=== PATIENT | male | born 1960 | race Caucasian/White ===

== ENCOUNTER 2024-10-01 06:11 | Observation (INO) ==
[2024-10-01] MEDS: MoRPHine SULFATE 4 MG/ML 1 ML CARP\\VIAL IV STA (06:33)
[2024-10-01] MEDS: ONDANSETRON INJ 2 MG/ML 2 ML VIAL IV STA (06:33)
--- NOTE | 2024-10-01 06:48 | Emergency Department Note ---
Impression & Plan Chest pain, Elevated troponin I level, Chest wall hematoma ED Provider Note NAME: MORTEZA THOMAS AGE: 64 SEX: M : 1960 ARRIVES VIA: Walk-In INFORMANT: Patient, ED PROVIDER(S): Tom Dasilva DO CHIEF COMPLAINT: Coughing HPI: The patient is a 64-year-old male who presented to the emergency department for an evaluation of cough. The patient's had a productive cough over the course of the last several weeks. The patient went to his family doctor and was placed on an antibiotic. This did not significantly improve his symptoms. He denies having any vomiting. He has been coughing to the point where now he has upper abdominal pain. He denies having any back pain. He denies have any leg swelling or leg pain. He did recently returned from a trip to [place]. The patient does not have a history of venous thromboembolic disease. He denies having any trauma. ROS: See above HPI for pertinent positives & negatives. A total of 10 systems reviewed and were otherwise negative. PAST MEDICAL HISTORY: See Below PAST SURGICAL HISTORY: See Below FAMILY HISTORY: See Below SOCIAL HISTORY: See Below HOME MEDICATIONS: See Below ALLERGIES: See Below VITALS: See Below PHYSICAL EXAMINATION: GENERAL: Patient is awake alert in no acute distress patient is resting comfortably and showing no signs of anxiety EYES: The conjunctivae are clear. The pupils are round and reactive. EARS, NOSE, MOUTH AND THROAT: The nose is without any evidence of any deformity. Mucous membranes are moist. Tongue is midline. NECK: The neck is nontender and supple. RESPIRATORY: Normal respiratory effort is noted there is no evidence of wheezing rhonchi or rales CARDIOVASCULAR: Regular rate and rhythm noted there no murmurs rubs or gallops normal S1 normal S2. GASTROINTESTINAL: The abdomen was soft and mildly distended. There is right upper quadrant tenderness to palpation which was moderate. There is no guarding rigidity. MUSCULOSKELETAL/EXTREMITIES: There is no evidence of gross deformity full range of motion is noted in the hips and shoulders. SKIN: There is no obvious evidence of any rash. There are no petechiae, pallor or cyanosis noted. NEUROLOGIC: Patient is awake alert and oriented x3 MEDICAL DECISION MAKING: The patient is a 64-year-old male who presented to the emergency department for abdominal pain and chest pain. The patient described anterior chest pain that also right upper quadrant abdominal pain. He has been experiencing a cough over the course the last several weeks. The patient was treated with an antibiotic but no improvement was noted. The patient has palpable tenderness over the right upper quadrant. I discussed patient's laboratory and radiographic studies with him. He was found to have an elevated troponin but EKG did not show any acute ischemic changes. I discussed his condition with the on-call [facility] hospitalist. Initially there was consideration for heparinization but we were waiting for the CT of the chest to be returned to determine if there was a pulmonary embolism. Ultimately the patient was found to have a large chest wall hematoma. For this reason anticoagulation would be not ideal and the patient's second troponin was lower than his initial finding. Triage Nursing notes reviewed. Prior medical records reviewed Vital Signs: reviewed and remarkable for no significant abnormalities Differential diagnosis: Cardiac ischemia, aortic dissection, pulmonary embolism, pneumothorax, pneumonia, pericarditis, myocarditis, esophageal rupture, GERD, cholecystitis, pancreatitis, musculoskeletal, as well as other pathologies. ER treatment provided: See below Diagnostics interpreted by me: ECG: EKG was obtained in the emergency department. My interpretation is sinus bradycardia at 47 bpm. There is no ectopy. There is no acute ST segment abnormalities noted. Cardiac Monitoring: An order was placed for continuous cardiac monitoring. The monitor shows a rate of 52 bpm with sinus bradycardia. Laboratory studies: As stated above and show below. Imaging studies: See below. Radiographic imaging was reviewed by myself Consultation(s): I discussed this case with Dr. Blanco who is on-call for the [facility]ist group. Past Med/Surg History Problem List (Updated 10/01/24 @ 09:42 by Tom Dasilva DO) Chest wall hematoma (Acute) Elevated troponin I level (Acute) Chest pain (Acute) Erectile dysfunction HTN (hypertension) Rosacea Right leg pain Class 2 obesity due to excess calories with body mass index (BMI) of 38.0 to 38.9 in adult Family History Other Ovarian cancer Denies family history of Prostate cancer Breast cancer Colorectal cancer Social History Smoking Status: Never smoker Tobacco Type: Smokeless Tobacco (Dip or Chew) Second Hand Exposure: No; Do You Dip or Chew Tobacco: Yes; Hx Alcohol Use: No Hx Substance Use: No Preferred Language: Slovak Communication Ability: Effective Hearing Ability: Normal [employer] Super[employer] Required: No Beliefs That Will Affect Care: None marital status: Current Living Situation: Spouse current occupational status: employed Other Information That Helps Us Care for You: No Feels Safe at Home: Yes Safety Concerns: Feels Safe At This Time Childhood Exposure to Second-Hand Smoke: Yes Diet: regular caffeine: Yes Physical Activity Frequency: Daily Physical Activity Frequency Comment: Active lifestyle Assistive Devices: None Allergies Allergies Allergy/AdvReac Type Severity Reaction Status Date / Time No Known Allergies Allergy Verified 10/01/24 09:53 Home Meds Previous Rx's Medication Instructions Recorded olmesartan 20 mg tablet 20 mg PO DAILY #90 tabs 05/22/24 sildenafil 50 mg tablet 50 mg PO DAILY PRN sexual activity 08/26/24 #10 tabs Results & Data (ED) Vital Signs Vital Signs - 24 hr 10/01/24 06:15 10/01/24 06:23 10/01/24 06:24 Temperature 36.7 C Temperature Source Temporal Artery Scan Pulse Rate 53 L 46 L Pulse Rate [Apical] Pulse Rhythm Regular Pulse Rhythm [Apical] Pulse Strength Normal Pulse Strength [Apical] Respiratory Rate 18 Respiratory Effort / Characteristics Non-Labored Spontaneous Respiratory Depth Normal Respiratory Pattern Regular Blood Pressure 129/78 Blood Pressure [Right Arm] Blood Pressure Mean 95 Blood Pressure Mean [Right Arm] Blood Pressure Position Sitting Blood Pressure Position [Right Arm] Pulse Oximetry 98 96 Oxygen Delivery Method Room Air Room Air Sepsis Recent Fever Within 48 Hours No Sepsis New/Unexplained Change in Mental Status N/A Sepsis Action Taken by Nursing No Action Required Oxygen Flow Rate - Titration Fraction of Inspired Oxygen - Titration Pulse Oximetry Post Tiitration 10/01/24 06:26 10/01/24 06:28 10/01/24 06:47 Temperature Temperature Source Pulse Rate 46 L Pulse Rate [Apical] 46 L Pulse Rhythm Regular Pulse Rhythm [Apical] Regular Pulse Strength Pulse Strength [Apical] Normal Respiratory Rate 17 17 Respiratory Effort / Characteristics Non-Labored Respiratory Depth Normal Respiratory Pattern Regular Blood Pressure Blood Pressure [Right Arm] 99/55 L Blood Pressure Mean Blood Pressure Mean [Right Arm] 69 Blood Pressure Position Blood Pressure Position [Right Arm] Sitting Pulse Oximetry 96 96 86 L Oxygen Delivery Method Room Air Room Air Room Air Nasal Cannula Sepsis Recent Fever Within 48 Hours Sepsis New/Unexplained Change in Mental Status Sepsis Action Taken by Nursing Oxygen Flow Rate - Titration 2 Fraction of Inspired Oxygen - Titration 2 Pulse Oximetry Post Tiitration 98 10/01/24 07:22 10/01/24 07:51 10/01/24 09:00 Temperature Temperature Source Pulse Rate Pulse Rate [Apical] 56 L 56 L 56 L Pulse Rhythm Pulse Rhythm [Apical] Pulse Strength Pulse Strength [Apical] Respiratory Rate 18 15 15 Respiratory Effort / Characteristics Non-Labored Non-Labored Non-Labored Respiratory Depth Normal Normal Normal Respiratory Pattern Regular Regular Regular Blood Pressure Blood Pressure [Right Arm] 104/74 118/65 118/67 Blood Pressure Mean Blood Pressure Mean [Right Arm] 84 82 84 Blood Pressure Position Blood Pressure Position [Right Arm] Pulse Oximetry 97 97 95 Oxygen Delivery Method Room Air Room Air Room Air Sepsis Recent Fever Within 48 Hours Sepsis New/Unexplained Change in Mental Status Sepsis Action Taken by Nursing Oxygen Flow Rate - Titration Fraction of Inspired Oxygen - Titration Pulse Oximetry Post Tiitration 10/01/24 10:33 Temperature Temperature Source Pulse Rate Pulse Rate [Apical] 52 L Pulse Rhythm Pulse Rhythm [Apical] Pulse Strength Pulse Strength [Apical] Respiratory Rate 15 Respiratory Effort / Characteristics Non-Labored Respiratory Depth Normal Respiratory Pattern Regular Blood Pressure Blood Pressure [Right Arm] 127/65 Blood Pressure Mean Blood Pressure Mean [Right Arm] 85 Blood Pressure Position Blood Pressure Position [Right Arm] Pulse Oximetry 94 Oxygen Delivery Method Room Air Sepsis Recent Fever Within 48 Hours Sepsis New/Unexplained Change in Mental Status Sepsis Action Taken by Nursing Oxygen Flow Rate - Titration Fraction of Inspired Oxygen - Titration Pulse Oximetry Post Tiitration Home Medications Current Medication List: was personally reviewed by me Laboratory Data Attestation: I reviewed the patient's lab results. 10/01/24 06:36 10/01/24 06:36 Lab Results 10/01/24 10/01/24 10/01/24 Range/Units 06:36 07:24 07:24 WBC 7.41 (4.8-10.8) K/ul RBC 4.92 (4.70-6.10) M/uL Hgb 15.1 (14.0-18.0) g/dl Hct 44.2 (42.0-52.0) % MCV 89.8 (80.0-100.0) fL MCH 30.7 (25.0-34.0) pg MCHC 34.2 (32.0-36.0) g/dL RDW Std Deviation 39.8 (36.4-46.3) fL RDW Coeff of Ruth 12.1 (11.5-14.5) % Plt Count 318 (130-400) K/uL MPV 9.6 (9.4-12.4) fL Immature Gran % (Auto) 0.8 % Neut % (Auto) 54.6 % Lymph % (Auto) 29.3 % [place] % (Auto) 12.1 % Eos % (Auto) 2.4 % Baso % (Auto) 0.8 % Neut # (Auto) 4.04 (1.40-6.50) K/uL Lymph # (Auto) 2.17 (1.20-3.40) K/uL [place] # (Auto) 0.90 H (0.11-0.59) K/uL Eos # (Auto) 0.18 (0.00-0.50) K/uL Baso # (Auto) 0.06 (0.00-0.20) K/uL Immature Gran # (Auto) 0.06 (0.01-0.20) K/uL PT 10.7 (9.0-12.0) Seconds INR 1.0 (0.9-1.1) APTT 28 (21-31) Seconds PTT Ratio 1.0 D-Dimer 1000 H* (0-500) ug/L FEU Sodium 138 (136-145) mmol/L Potassium 4.2 (3.5-5.1) mmol/L Chloride 103 (98-107) mmol/L Carbon Dioxide 30 (21-32) mmol/L Anion Gap 5 (3-11) BUN 21 (6-23) mg/dl Creatinine 0.91 (0.6-1.4) mg/dl Est Cr Clr Drug Dosing 122.2 ml/min eGFR 94.70 BUN/Creatinine Ratio 23.1 H (10-20) Glucose 160 H (70-99(Fasting)) mg/dl Calcium 8.7 (8.6-10.3) mg/dl Total Bilirubin 0.6 (0.2-1.0) mg/dl AST 24 (13-39) U/L ALT 20 (7-52) U/L Alkaline Phosphatase 90 (34-104) U/L Total Creatine Kinase (30-223) U/L Troponin I High Sens 146.6 H* (0-20) pg/ml B-Natriuretic Peptide (0-100) pg/ml Total Protein 6.7 (6.0-8.3) gm/dl Albumin 4.1 (3.4-5.0) gm/dl Globulin 2.6 (2.5-4.0) gm/dl Albumin/Globulin Ratio 1.6 (0.9-2) Lipase 19 (11-82) U/L Urine Color Urine Appearance (Clear) Urine pH (4.5-7.5) Ur Specific [place] (1.000-1.030) Urine Protein (Negative) Urine Glucose (UA) (Negative) Urine Ketones (Negative) Urine Blood (Negative) Urine Nitrite (Negative) Urine Bilirubin (Negative) Urine Urobilinogen (Negative) Ur Leukocyte Esterase (Negative) Urine WBC (Auto) (0-5) /hpf Urine RBC (Auto) (0-2) /hpf U Hyaline Cast (Auto) (0-2) /lpf U Epithel Cells (Auto) (0-2) /hpf Urine Bacteria (Auto) (None Seen) Hyaline Casts (None Presnt) /lpf Granular Casts (None Prsent) /lpf Urine Mucus (None Prsent) Adenovirus (PCR) Not Detected (NotDetected) B. pertussis DNA (PCR) Not Detected (NotDetected) B.parapertussis DNA PCR Not Detected (NotDetected) C. pneumoniae DNA (PCR) Not Detected (NotDetected) Coronavirus OC43 (PCR) Not Detected (NotDetected) Coronavirus HKU1 (PCR) Not Detected (NotDetected) Coronavirus 229E (PCR) Not Detected (NotDetected) SARS-CoV-2 (PCR) NEGATIVE Not Detected (Negative) Coronavirus NL63 (PCR) Not Detected (NotDetected) Human Metapneumovir PCR Not Detected (NotDetected) Influenza Type A (PCR) Negative (Neg) Influenza Type B (PCR) (Neg) M. pneumoniae (PCR) (NotDetected) Parainfluenza 1 (PCR) (NotDetected) Parainfluenza 2 (PCR) (NotDetected) Parainfluenza 3 (PCR) (NotDetected) Parainfluenza 4 (PCR) (NotDetected) RSV (RT-PCR) (Neg) RSV (PCR) (NotDetected) Entero/Rhino (PCR) (NotDetected) 10/01/24 10/01/24 10/01/24 Range/Units 07:24 07:24 07:47 WBC (4.8-10.8) K/ul RBC (4.70-6.10) M/uL Hgb (14.0-18.0) g/dl Hct (42.0-52.0) % MCV (80.0-100.0) fL MCH (25.0-34.0) pg MCHC (32.0-36.0) g/dL RDW Std Deviation (36.4-46.3) fL RDW Coeff of Ruth (11.5-14.5) % Plt Count (130-400) K/uL MPV (9.4-12.4) fL Immature Gran % (Auto) % Neut % (Auto) % Lymph % (Auto) % [place] % (Auto) % Eos % (Auto) % Baso % (Auto) % Neut # (Auto) (1.40-6.50) K/uL Lymph # (Auto) (1.20-3.40) K/uL [place] # (Auto) (0.11-0.59) K/uL Eos # (Auto) (0.00-0.50) K/uL Baso # (Auto) (0.00-0.20) K/uL Immature Gran # (Auto) (0.01-0.20) K/uL PT (9.0-12.0) Seconds INR (0.9-1.1) APTT (21-31) Seconds PTT Ratio D-Dimer (0-500) ug/L FEU Sodium (136-145) mmol/L Potassium (3.5-5.1) mmol/L Chloride (98-107) mmol/L Carbon Dioxide (21-32) mmol/L Anion Gap (3-11) BUN (6-23) mg/dl Creatinine (0.6-1.4) mg/dl Est Cr Clr Drug Dosing ml/min eGFR BUN/Creatinine Ratio (10-20) Glucose (70-99(Fasting)) mg/dl Calcium (8.6-10.3) mg/dl Total Bilirubin (0.2-1.0) mg/dl AST (13-39) U/L ALT (7-52) U/L Alkaline Phosphatase (34-104) U/L Total Creatine Kinase (30-223) U/L Troponin I High Sens (0-20) pg/ml B-Natriuretic Peptide (0-100) pg/ml Total Protein (6.0-8.3) gm/dl Albumin (3.4-5.0) gm/dl Globulin (2.5-4.0) gm/dl Albumin/Globulin Ratio (0.9-2) Lipase (11-82) U/L Urine Color Dark Yellow Urine Appearance Clear (Clear) Urine pH 5.5 (4.5-7.5) Ur Specific [place] 1.042 H (1.000-1.030) Urine Protein 1+ H (Negative) Urine Glucose (UA) Negative (Negative) Urine Ketones Trace H (Negative) Urine Blood Negative (Negative) Urine Nitrite Negative (Negative) Urine Bilirubin Negative (Negative) Urine Urobilinogen Negative (Negative) Ur Leukocyte Esterase Negative (Negative) Urine WBC (Auto) 0-5 (0-5) /hpf Urine RBC (Auto) 0-2 (0-2) /hpf U Hyaline Cast (Auto) >20 H (0-2) /lpf U Epithel Cells (Auto) 0-2 (0-2) /hpf Urine Bacteria (Auto) None Seen (None Seen) Hyaline Casts Present A (None Presnt) /lpf Granular Casts Present A (None Prsent) /lpf Urine Mucus Present A (None Prsent) Adenovirus (PCR) (NotDetected) B. pertussis DNA (PCR) (NotDetected) B.parapertussis DNA PCR (NotDetected) C. pneumoniae DNA (PCR) (NotDetected) Coronavirus OC43 (PCR) (NotDetected) Coronavirus HKU1 (PCR) (NotDetected) Coronavirus 229E (PCR) (NotDetected) SARS-CoV-2 (PCR) (Negative) Coronavirus NL63 (PCR) (NotDetected) Human Metapneumovir PCR (NotDetected) Influenza Type A (PCR) Not Detected (Neg) Influenza Type B (PCR) Negative Not Detected (Neg) M. pneumoniae (PCR) Not Detected (NotDetected) Parainfluenza 1 (PCR) Not Detected (NotDetected) Parainfluenza 2 (PCR) Not Detected (NotDetected) Parainfluenza 3 (PCR) Not Detected (NotDetected) Parainfluenza 4 (PCR) Not Detected (NotDetected) RSV (RT-PCR) Negative (Neg) RSV (PCR) Not Detected (NotDetected) Entero/Rhino (PCR) Not Detected (NotDetected) 10/01/24 10/01/24 Range/Units 08:18 09:21 WBC (4.8-10.8) K/ul RBC (4.70-6.10) M/uL Hgb (14.0-18.0) g/dl Hct (42.0-52.0) % MCV (80.0-100.0) fL MCH (25.0-34.0) pg MCHC (32.0-36.0) g/dL RDW Std Deviation (36.4-46.3) fL RDW Coeff of Ruth (11.5-14.5) % Plt Count (130-400) K/uL MPV (9.4-12.4) fL Immature Gran % (Auto) % Neut % (Auto) % Lymph % (Auto) % [place] % (Auto) % Eos % (Auto) % Baso % (Auto) % Neut # (Auto) (1.40-6.50) K/uL Lymph # (Auto) (1.20-3.40) K/uL [place] # (Auto) (0.11-0.59) K/uL Eos # (Auto) (0.00-0.50) K/uL Baso # (Auto) (0.00-0.20) K/uL Immature Gran # (Auto) (0.01-0.20) K/uL PT (9.0-12.0) Seconds INR (0.9-1.1) APTT (21-31) Seconds PTT Ratio D-Dimer (0-500) ug/L FEU Sodium (136-145) mmol/L Potassium (3.5-5.1) mmol/L Chloride (98-107) mmol/L Carbon Dioxide (21-32) mmol/L Anion Gap (3-11) BUN (6-23) mg/dl Creatinine (0.6-1.4) mg/dl Est Cr Clr Drug Dosing ml/min eGFR BUN/Creatinine Ratio (10-20) Glucose (70-99(Fasting)) mg/dl Calcium (8.6-10.3) mg/dl Total Bilirubin (0.2-1.0) mg/dl AST (13-39) U/L ALT (7-52) U/L Alkaline Phosphatase (34-104) U/L Total Creatine Kinase 457 H (30-223) U/L Troponin I High Sens 132.6 H* (0-20) pg/ml B-Natriuretic Peptide 22 (0-100) pg/ml Total Protein (6.0-8.3) gm/dl Albumin (3.4-5.0) gm/dl Globulin (2.5-4.0) gm/dl Albumin/Globulin Ratio (0.9-2) Lipase (11-82) U/L Urine Color Urine Appearance (Clear) Urine pH (4.5-7.5) Ur Specific [place] (1.000-1.030) Urine Protein (Negative) Urine Glucose (UA) (Negative) Urine Ketones (Negative) Urine Blood (Negative) Urine Nitrite (Negative) Urine Bilirubin (Negative) Urine Urobilinogen (Negative) Ur Leukocyte Esterase (Negative) Urine WBC (Auto) (0-5) /hpf Urine RBC (Auto) (0-2) /hpf U Hyaline Cast (Auto) (0-2) /lpf U Epithel Cells (Auto) (0-2) /hpf Urine Bacteria (Auto) (None Seen) Hyaline Casts (None Presnt) /lpf Granular Casts (None Prsent) /lpf Urine Mucus (None Prsent) Adenovirus (PCR) (NotDetected) B. pertussis DNA (PCR) (NotDetected) B.parapertussis DNA PCR (NotDetected) C. pneumoniae DNA (PCR) (NotDetected) Coronavirus OC43 (PCR) (NotDetected) Coronavirus HKU1 (PCR) (NotDetected) Coronavirus 229E (PCR) (NotDetected) SARS-CoV-2 (PCR) (Negative) Coronavirus NL63 (PCR) (NotDetected) Human Metapneumovir PCR (NotDetected) Influenza Type A (PCR) (Neg) Influenza Type B (PCR) (Neg) M. pneumoniae (PCR) (NotDetected) Parainfluenza 1 (PCR) (NotDetected) Parainfluenza 2 (PCR) (NotDetected) Parainfluenza 3 (PCR) (NotDetected) Parainfluenza 4 (PCR) (NotDetected) RSV (RT-PCR) (Neg) RSV (PCR) (NotDetected) Entero/Rhino (PCR) (NotDetected) Administered Medications Discontinued Medications Sodium Chloride (Nss) 500 mls @ 999 mls/hr IV .Q31M ONE Stop: 10/01/24 07:53 Last Infusion: 10/01/24 08:21 Dose: Infused Documented By: JOSE R Admin: 10/01/24 07:49 Dose: 999 mls/hr Documented By: JOSE R Ioversol (Optiray 320 125ml) 112 ml IV ONCE ONE Stop: 10/01/24 07:36 Last Admin: 10/01/24 07:36 Dose: 112 ml Documented By: TEO Morphine Sulfate (Morphine Sulfate 4 Mg/Ml 1 Ml Carp\Vial) 4 mg IV NOW STA Stop: 10/01/24 06:28 Last Admin: 10/01/24 06:33 Dose: 4 mg Documented By: LIZ Ondansetron HCl (Ondansetron Inj 2 Mg/Ml 2 Ml Vial) 4 mg IV NOW STA Stop: 10/01/24 06:28 Last Admin: 10/01/24 06:33 Dose: 4 mg Documented By: LIZ Imaging Data Attestation: I personally reviewed and interpreted this imaging study as follows: My Impression: 1 view chest x-ray was obtained in the emergency department. My interpretation is no free air or definite infiltrate, final report below. Radiologist's Impression: Chest X-Ray 10/01/24 06:26 EXAM: XR chest 1V portable CLINICAL HISTORY: CHEST PAIN JMF. TECHNIQUE: An X-ray image of the chest is obtained in AP projection. COMPARISON: No prior studies are available for comparison. FINDINGS: Pulmonary Parenchyma: Lungs are clear bilaterally. No evidence of consolidation, collapse, or focal opacities. No pulmonary nodules are identified. No evidence of pleural effusion or pleural thickening. Heart and Mediastinum: Heart size and shape are normal. No mediastinal widening or masses. No hilar or mediastinal lymphadenopathy. Bony Thorax: Bony thorax appears intact without fractures or deformities. Soft Tissues: Soft tissues overlying the chest wall are unremarkable. IMPRESSION: Normal chest X-ray. No acute cardiopulmonary abnormalities are identified. Electronically signed by Mabel Corrigan 10-01-2024 07:26 AM Abdomen/Pelvis CT 10/01/24 07:23 CT abd pelvis IV con only CLINICAL HISTORY: RUQ pain TECHNIQUE: Helical axial images of the abdomen and pelvis were obtained and displayed. Automated dose lowering techniques and/or adjustment according to patient size were utilized for this exam. This exam was performed with intravenous contrast. COMPARISON: None available at the time of this dictation. FINDINGS: Lower chest: For findings above the diaphragm, please see CT chest performed same day. Liver: Unremarkable. No focal lesions are seen. Gallbladder and biliary tree: The gallbladder appears contracted and a gallstone is seen. Gallbladder wall measures approximately 3 mm. No intra- or extrahepatic biliary ductal dilation. Pancreas: Unremarkable, no focal lesions. Spleen: Unremarkable. Adrenals: Unremarkable. Kidneys and ureters: Fat stranding is seen about the kidney. Bladder: Diffuse homogeneous wall thickening is seen. Reproductive organs: Prostatomegaly is seen. Bowel: Diverticulosis is seen without diverticulitis. The appendix is normal. Lymph nodes Retroperitoneal: Unremarkable. Pelvic: Unremarkable. Mesenteric: Unremarkable. Peritoneum: Normal. Vessels: Unremarkable. Abdominal wall: There is asymmetric thickening of the right lower chest and abdominal musculature with some heterogeneity noted. Bones: Degenerative changes in the visualized spine. IMPRESSION: 1. Thickening and heterogeneity of the right upper quadrant anterior abdominal musculature, extending to the lower chest. Correlation with physical exam is recommended to exclude intramuscular hematoma/myositis. No active extravasation is seen. 2. Cholelithiasis with contracted gallbladder, not highly suspicious for acute cholecystitis however clinical correlation is recommended. ACT 112: Negative or not required by law. Electronically signed by: Luis Ryan M.D. 10/01/2024 8:50 AM Chest CTA 10/01/24 07:23 CT ANGIOGRAPHY OF THE CHEST, PULMONARY EMBOLUS PROTOCOL CLINICAL HISTORY: Persistent right-sided chest pain and cough. Evaluate for pulmonary embolus. COMPARISON STUDY: Chest radiograph performed earlier today. TECHNIQUE: Following IV administration of 112 mL of Optiray, helical axial images of the chest were obtained utilizing the pulmonary embolus protocol. Maximal intensity projections and sagittal and coronal reformats were viewed on an independent 3D workstation. IV contrast was administered without complication. Automated exposure control was utilized for the study. A dose lowering technique was utilized adhering to the principles of ALARA. CT DOSE: 2525.64 mGy.cm FINDINGS: No pulmonary emboli are identified. The heart is moderately enlarged. There is no pericardial effusion. No enlarged axillary, mediastinal or hilar lymph nodes are present. Ascending aorta is dilated, measuring 4.6 cm at the level of the main pulmonary artery. Thoracic aortic opacification is suboptimal but no dissection is identified. There is no pneumothorax or pleural effusion. There is no consolidation to suggest pneumonia. There is a calcified granuloma within the right middle lobe. Note is made of asymmetric thickening and increased attenuation within the right lower chest wall musculature extending into the right upper abdominal wall musculature. There is adjacent stranding. No active extravasation is identified. This intramuscular hematomas better depicted on the CT of the abdomen and pelvis. IMPRESSION: 1. No pulmonary emboli identified. 2. Acute intramuscular hematoma within the right lower chest/upper abdominal wall, as described above. This is better depicted on the abdomen and pelvis CT. Adjacent stranding consistent with hemorrhage. Overall, moderate hemorrhage. No active extravasation. 3. Aneurysmal dilatation of the ascending aorta measuring 4.6 cm at the level of the main pulmonary artery. ACT 112: Negative or not required by law. Electronically signed by: Juan Brennan M.D. 10/01/2024 9:28 AM Discharge Plan Visit Data Chief Complaint: Chest Pain Stated Complaint: CHEST PAIN,WET COUGH X 6 WEEKS ED Provider: Tom Dasilva Discharge Problem: Chest pain, Elevated troponin I level, Chest wall hematoma Patient Disposition: Being Evaluated by Hospitalist Forms Stand Alone Forms: [employer] Prescriptions Prescriptions: No Action sildenafil 50 mg tablet 50 mg PO DAILY PRN (Reason: sexual activity) Qty: 10 0RF Rx Instructions: administer 30 minutes to 4 hours before activity olmesartan 20 mg tablet 20 mg PO DAILY Qty: 90 3RF Referrals Referrals: Lazaro Paez DO [Primary Care Provider] - Discharge Problem: Chest pain Qualifiers: Chest pain type: unspecified Qualified Code(s): R07.9 - Chest pain, unspecified Chest wall hematoma Qualifiers: Encounter type: initial encounter Laterality: right Qualified Code(s): S20.211A - Contusion of right front wall of thorax, initial encounter
[2024-10-01 06:58] LABS: Basophils # (auto) 0.06 K/uL (0.00-0.20); Basophils % (auto) 0.8 %; Eosinophils # (auto) 0.18 K/uL (0.00-0.50); Eosinophils % (auto) 2.4 %; Hematocrit (blood only) 44.2 % (42.0-52.0); Hemoglobin 15.1 g/dl (14.0-18.0); Immature Granulocytes # (auto) 0.06 K/uL (0.01-0.20); Immature Granulocytes % (auto) 0.8 %; Lymphocytes # (auto) 2.17 K/uL (1.20-3.40); Lymphocytes % (auto) 29.3 %; Mean Corpuscular Hemoglobin 30.7 pg (25.0-34.0); Mean Corpuscular Hgb Conc 34.2 g/dL (32.0-36.0); Mean Corpuscular Volume 89.8 fL (80.0-100.0); Mean Platelet Volume 9.6 fL (9.4-12.4); Monocytes % (auto) 12.1 %; Neutrophils # (auto) 4.04 K/uL (1.40-6.50); Neutrophils % (auto) 54.6 %; Platelet Count 318 K/uL (130-400); RDW Coefficient of Variation 12.1 % (11.5-14.5); RDW Standard Deviation 39.8 fL (36.4-46.3); Red Blood Count 4.92 M/uL (4.70-6.10); White Blood Count 7.41 K/ul (4.8-10.8)
[2024-10-01 07:10] LABS: Albumin Globulin Ratio 1.6 (0.9-2); Albumin Level 4.1 gm/dl (3.4-5.0); BUN Creatinine Ratio 23.1 (10-20); Bilirubin,Total 0.6 mg/dl (0.2-1.0); Calcium 8.7 mg/dl (8.6-10.3); Creatinine Clr Calc Pharmacy 122.2 ml/min; Globulin 2.6 gm/dl (2.5-4.0); Potassium 4.2 mmol/L (3.5-5.1); Total Protein 6.7 gm/dl (6.0-8.3)
[2024-10-01 07:22] LABS: Troponin I High Sensitivity 146.6 pg/ml (0-20)
--- NOTE | 2024-10-01 07:26 | XRay Report ---
EXAM: XR chest 1V portable CLINICAL HISTORY: CHEST PAIN JMF. TECHNIQUE: An X-ray image of the chest is obtained in AP projection. COMPARISON: No prior studies are available for comparison. FINDINGS: Pulmonary Parenchyma: Lungs are clear bilaterally. No evidence of consolidation, collapse, or focal opacities. No pulmonary nodules are identified. No evidence of pleural effusion or pleural thickening. Heart and Mediastinum: Heart size and shape are normal. No mediastinal widening or masses. No hilar or mediastinal lymphadenopathy. Bony Thorax: Bony thorax appears intact without fractures or deformities. Soft Tissues: Soft tissues overlying the chest wall are unremarkable. IMPRESSION: Normal chest X-ray. No acute cardiopulmonary abnormalities are identified. Electronically signed by Mabel Corrigan 10-01-2024 07:26 AM
[2024-10-01 07:27] LABS: Partial Thromboplastin Time 28 Seconds (21-31); Prothrombin Time 10.7 Seconds (9.0-12.0)
[2024-10-01 07:35] LABS: D Dimer 1000 ug/L FEU (0-500)
[2024-10-01] MEDS: OPTIRAY 320 125ml IV ONE (07:36)
[2024-10-01] MEDS: SODIUM CHLORIDE 0.9% 500 ML IV ONE (07:49)
[2024-10-01 08:19] LABS: Appearance Urine Clear (Clear); Bacteria Urine Automated None Seen (None Seen); Bilirubin Urine Negative (Negative); Blood Urine Negative (Negative); Cast Urine Automated >20 /lpf (0-2); Color Urine Dark Yellow; Epithelial Cell Urine Auto 0-2 /hpf (0-2); Glucose Urine UA Negative (Negative); Granular Casts Urine Present /lpf (None Prsent); Hyaline Casts Urine Present /lpf (None Presnt); Ketones Urine Trace (Negative); Leukocyte Esterase Urine Negative (Negative); Mucus Urine Present (None Prsent); Nitrite Urine Negative (Negative); Protein Urine 1+ (Negative); RBC Urine Automated 0-2 /hpf (0-2); Specific Gravity Urine 1.042 (1.000-1.030); Urobilinogen Urine Negative (Negative); WBC Urine Automated 0-5 /hpf (0-5); pH Urine 5.5 (4.5-7.5)
[2024-10-01 08:38] LABS: Influenza A virus by PCR Negative (Neg); Influenza B virus by PCR Negative (Neg); RSV by PCR Negative (Neg); SARS CoV2 RNA(COVID-19) Ceph NEGATIVE (Negative)
--- NOTE | 2024-10-01 08:52 | CT Scan Report ---
CT abd pelvis IV con only CLINICAL HISTORY: RUQ pain TECHNIQUE: Helical axial images of the abdomen and pelvis were obtained and displayed. Automated dose lowering techniques and/or adjustment according to patient size were utilized for this exam. This e xam was performed with intravenous contrast. COMPARISON: None available at the time of this dictation. FINDINGS: Lower chest: For findings above the diaphragm, please see CT chest performed same day. Liver: Unremarkable. No focal lesions are seen. Gallbladder and biliary tree: The gallbladder appears contracted and a gallstone is seen. Gallbladder wall measures approximately 3 mm. No intra- or extrahepatic biliary ductal dilation. Pancreas: Unremarkable, no focal lesions. Spleen: Unremarkable. Adrenals: Unremarkable. Kidneys and ureters: Fat stranding is seen about the kidney. Bladder: Diffuse homogeneous wall thickening is seen. Reproductive organs: Prostatomegaly is seen. Bowel: Diverticulosis is seen without diverticulitis. The appendix is normal. Lymph nodes Retroperitoneal: Unremarkable. Pelvic: Unremarkable. Mesenteric: Unremarkable. Peritoneum: Normal. Vessels: Unremarkable. Abdominal wall: There is asymmetric thickening of the right lower chest and abdominal musculature wit h some heterogeneity noted. Bones: Degenerative changes in the visualized spine. IMPRESSION: 1. Thickening and heterogeneity of the right upper quadrant anterior abdominal musculature, extendin g to the lower chest. Correlation with physical exam is recommended to exclude intramuscular hematoma /myositis. No active extravasation is seen. 2. Cholelithiasis with contracted gallbladder, not highly suspicious for acute cholecystitis however clinical correlation is recommended. ACT 112: Negative or not required by law. Electronically signed by: Luis Ryan M.D. 10/01/2024 8:50 AM
--- NOTE | 2024-10-01 09:30 | CT Scan Report ---
CT ANGIOGRAPHY OF THE CHEST, PULMONARY EMBOLUS PROTOCOL CLINICAL HISTORY: Persistent right-sided chest pain and cough. Evaluate for pulmonary embolus. COMPARISON STUDY: Chest radiograph performed earlier today. TECHNIQUE: Following IV administration of 112 mL of Optiray, helical axial images of the chest were o btained utilizing the pulmonary embolus protocol. Maximal intensity projections and sagittal and cor onal reformats were viewed on an independent 3D workstation. IV contrast was administered without co mplication. Automated exposure control was utilized for the study. A dose lowering technique was ut ilized adhering to the principles of ALARA. CT DOSE: 2525.64 mGy.cm FINDINGS: No pulmonary emboli are identified. The heart is moderately enlarged. There is no pericard ial effusion. No enlarged axillary, mediastinal or hilar lymph nodes are present. Ascending aorta is dilated, measuring 4.6 cm at the level of the main pulmonary artery. Thoracic aortic opacification is suboptimal but no dissection is identified. There is no pneumothorax or pleural effusion. There is n o consolidation to suggest pneumonia. There is a calcified granuloma within the right middle lobe. No te is made of asymmetric thickening and increased attenuation within the right lower chest wall muscu lature extending into the right upper abdominal wall musculature. There is adjacent stranding. No act halley extravasation is identified. This intramuscular hematomas better depicted on the CT of the abdome n and pelvis. IMPRESSION: 1. No pulmonary emboli identified. 2. Acute intramuscular hematoma within the right lower chest/upper abdominal wall, as described above . This is better depicted on the abdomen and pelvis CT. Adjacent stranding consistent with hemorrhage . Overall, moderate hemorrhage. No active extravasation. 3. Aneurysmal dilatation of the ascending aorta measuring 4.6 cm at the level of the main pulmonary a rtery. ACT 112: Negative or not required by law. Electronically signed by: Juan Brennan M.D. 10/01/2024 9:28 AM
--- NOTE | 2024-10-01 10:30 | History & Physical Report ---
Date of Service October 01, 2024 Assessment & Plan (1) Chest wall hematoma: Plan: 64-year-old male with past medical history of hypertension and erectile dysfunction presented with right lower bowel chest pain x 2-3 weeks. This is in the setting of persistent cough for nearly 6 weeks that began with common cold symptoms. He did see his PCP on 09/12/2024 for cough and cold symptoms, and was given prescription for Augmentin x 7 days at that time, with no change in his cough. Not hypoxic, afebrile, without leukocytosis on presentation. Chest CT revealed moderate right lower chest hematoma, suspect this to be the cause of his ongoing chest wall pain. Chest CTA revealed moderate acute intramuscular hematoma within the right lower chest/upper abdominal wall, negative for PE D-dimer elevated at 1000, consistent with hematoma Suspect hematoma caused by persistent heavy coughing is the cause of his chest wall pain. Subacute cough may be due to postinfectious etiology. Hemoglobin stable at 15.1 Dextromethorphan 30 mg PO Q6H PRN cough. If no improvement, consider codeine cough syrup Tylenol as needed for pain/fever Zofran as needed for nausea Sputum culture ordered (2) Elevated troponin I level: Plan: Troponin elevated at 146.6, then downtrended. Bradycardic on presentation, currently with regular rate and rhythm in the 60s70s EKG without ischemic changes Echocardiogram ordered, no prior echo for comparison. If wall motion abnormalities are present, consult cardiology Patient reports stress test years ago that was normal. No recent stress test or cardiac workups BNP within normal limits at 22, CXR normal, low suspicion for heart failure exacerbation Respiratory bio fire negative (3) HTN (hypertension): Plan: Chronic and stable, started on olmesartan in April 2024 by PCP. Most recent BP 118/67 ARB may be contributing to persistent cough, though lower suspicion. If no improvement in his symptoms with plan noted above, could consider placing ARB on hold Continue olmesartan 20 mg daily Plan UA without signs of infection, but suggestive of dehydration with elevated specific gravity, hyaline and granular casts. Oral hydration encouraged VTE PPx: Low low risk, encourage ambulation CODE STATUS: Full code Dispo: Observation on med/tele History of Present Illness Chief Complaint: Right lower wall chest pain secondary to persistent coughing Primary Care Provider: Lazaro Paez DO Mr. Turner is a pleasant 64-year-old male with past medical hypertension well-controlled with losartan and erectile dysfunction. He presented from home because of chest wall pain that has been ongoing for 2-3 weeks, in the setting of persistent cough x 6 weeks. No signs of nausea earlier this morning, which has resolved since presentation to ED. He states this chest wall pain is an intermittently sharp/stabbing pain most prominent while coughing. Reports that approximately 6 weeks ago he had a cold which resolved after a few days, but he cough has persisted. He saw his PCP on 09/12/2024 and was prescribed Augmentin x 7 days at that time. Patient reports no significant improvement in his cough after the course of antibiotic. He denies any past history of cardiac problems or heart failure. He denies ongoing post-nasal drip, GERD symptoms, exertional dyspnea or angina. He reports a stress test years ago was normal (no report in chart to review). Chest CT revealed moderate acute right lower chest/upper abdominal wall intramuscular hematoma. Chest x-ray and BNP were negative. EKG without ischemic changes. Patient is stable; normal vital signs, not hypoxic, afebrile, no leukocytosis, negative UA, negative respiratory bio fire. He took his morning dose of olmesartan. We discussed code status, he wishes to be a full code at this time. was present at bedside. Allergies Allergy/AdvReac Type Severity Reaction Status Date / Time No Known Allergies Allergy Verified 10/01/24 09:53 Home Medications Medication Instructions Recorded Confirmed Type olmesartan 20 mg tablet 20 mg PO DAILY #90 tabs 05/22/24 10/01/24 Rx sildenafil 50 mg tablet 50 mg PO DAILY PRN sexual activity 08/26/24 10/01/24 Rx #10 tabs Past Med/Surg History Problem List (Updated 10/01/24 @ 09:42 by Tom Dasilva DO) Chest wall hematoma (Acute) Elevated troponin I level (Acute) Chest pain (Acute) Erectile dysfunction HTN (hypertension) Rosacea Right leg pain Class 2 obesity due to excess calories with body mass index (BMI) of 38.0 to 38.9 in adult Family History Other Ovarian cancer Denies family history of Prostate cancer Breast cancer Colorectal cancer Social History Smoking Status: Never smoker Tobacco Type: Smokeless Tobacco (Dip or Chew) Second Hand Exposure: No; Do You Dip or Chew Tobacco: Yes; Hx Alcohol Use: No Hx Substance Use: No Preferred Language: Kazakh Communication Ability: Effective Hearing Ability: Normal Continuous Churn Buttermaker Required: No Beliefs That Will Affect Care: None marital status: Current Living Situation: Spouse current occupational status: employed Other Information That Helps Us Care for You: No Feels Safe at Home: Yes Safety Concerns: Feels Safe At This Time Childhood Exposure to Second-Hand Smoke: Yes Diet: regular caffeine: Yes Physical Activity Frequency: Daily Physical Activity Frequency Comment: Active lifestyle Assistive Devices: None Physical Exam Physical Exam: General: No acute distress, nondiaphoretic, well-developed. Class II obesity with BMI 36.7. Cardiac: Regular rate and rhythm without murmurs gallops or rubs. Anterior right lower chest wall tender to palpation. No peripheral edema. Pulm: Clear to auscultation bilaterally without wheezes, rales or rhonchi. No respiratory distress. 94% on room air. Abdominal: Soft, nontender, distention secondary to body habitus. Bowel sounds present. Neuro: A&O x3. No focal neurological deficits. Results & Data Results & Data Vital Signs (Past 12 Hours) Vital Signs Temp Pulse Pulse Resp BP BP Pulse Ox 10/01/24 09:00 56 L 15 118/67 95 10/01/24 07:51 56 L 15 118/65 97 10/01/24 07:22 56 L 18 104/74 97 10/01/24 06:47 86 L 10/01/24 06:28 46 L 17 96 10/01/24 06:26 46 L 17 99/55 L 96 10/01/24 06:24 46 L 10/01/24 06:23 96 10/01/24 06:15 98.1 F 53 L 18 129/78 98 O2 Del Method 10/01/24 09:00 Room Air 10/01/24 07:51 Room Air 10/01/24 07:22 Room Air 10/01/24 06:47 Room Air, Nasal Cannula 10/01/24 06:28 Room Air 10/01/24 06:26 Room Air 10/01/24 06:24 10/01/24 06:23 Room Air 10/01/24 06:15 Room Air Laboratory Results Reviewed CBC Reviewed coags Reviewed chemistries Reviewed UA Reviewed respiratory bio fire Diagnostic Findings Chest X-Ray 10/01/24 06:26 EXAM: XR chest 1V portable CLINICAL HISTORY: CHEST PAIN JMF. TECHNIQUE: An X-ray image of the chest is obtained in AP projection. COMPARISON: No prior studies are available for comparison. FINDINGS: Pulmonary Parenchyma: Lungs are clear bilaterally. No evidence of consolidation, collapse, or focal opacities. No pulmonary nodules are identified. No evidence of pleural effusion or pleural thickening. Heart and Mediastinum: Heart size and shape are normal. No mediastinal widening or masses. No hilar or mediastinal lymphadenopathy. Bony Thorax: Bony thorax appears intact without fractures or deformities. Soft Tissues: Soft tissues overlying the chest wall are unremarkable. IMPRESSION: Normal chest X-ray. No acute cardiopulmonary abnormalities are identified. Electronically signed by Mabel Corrigan 10-01-2024 07:26 AM Abdomen/Pelvis CT 10/01/24 07:23 CT abd pelvis IV con only CLINICAL HISTORY: RUQ pain TECHNIQUE: Helical axial images of the abdomen and pelvis were obtained and displayed. Automated dose lowering techniques and/or adjustment according to patient size were utilized for this exam. This exam was performed with intravenous contrast. COMPARISON: None available at the time of this dictation. FINDINGS: Lower chest: For findings above the diaphragm, please see CT chest performed same day. Liver: Unremarkable. No focal lesions are seen. Gallbladder and biliary tree: The gallbladder appears contracted and a gallstone is seen. Gallbladder wall measures approximately 3 mm. No intra- or extrahepatic biliary ductal dilation. Pancreas: Unremarkable, no focal lesions. Spleen: Unremarkable. Adrenals: Unremarkable. Kidneys and ureters: Fat stranding is seen about the kidney. Bladder: Diffuse homogeneous wall thickening is seen. Reproductive organs: Prostatomegaly is seen. Bowel: Diverticulosis is seen without diverticulitis. The appendix is normal. Lymph nodes Retroperitoneal: Unremarkable. Pelvic: Unremarkable. Mesenteric: Unremarkable. Peritoneum: Normal. Vessels: Unremarkable. Abdominal wall: There is asymmetric thickening of the right lower chest and abdominal musculature with some heterogeneity noted. Bones: Degenerative changes in the visualized spine. IMPRESSION: 1. Thickening and heterogeneity of the right upper quadrant anterior abdominal musculature, extending to the lower chest. Correlation with physical exam is recommended to exclude intramuscular hematoma/myositis. No active extravasation is seen. 2. Cholelithiasis with contracted gallbladder, not highly suspicious for acute cholecystitis however clinical correlation is recommended. ACT 112: Negative or not required by law. Electronically signed by: Luis Ryan M.D. 10/01/2024 8:50 AM Chest CTA 10/01/24 07:23 CT ANGIOGRAPHY OF THE CHEST, PULMONARY EMBOLUS PROTOCOL CLINICAL HISTORY: Persistent right-sided chest pain and cough. Evaluate for pulmonary embolus. COMPARISON STUDY: Chest radiograph performed earlier today. TECHNIQUE: Following IV administration of 112 mL of Optiray, helical axial images of the chest were obtained utilizing the pulmonary embolus protocol. Maximal intensity projections and sagittal and coronal reformats were viewed on an independent 3D workstation. IV contrast was administered without complication. Automated exposure control was utilized for the study. A dose lowering technique was utilized adhering to the principles of ALARA. CT DOSE: 2525.64 mGy.cm FINDINGS: No pulmonary emboli are identified. The heart is moderately enlarged. There is no pericardial effusion. No enlarged axillary, mediastinal or hilar lymph nodes are present. Ascending aorta is dilated, measuring 4.6 cm at the level of the main pulmonary artery. Thoracic aortic opacification is suboptimal but no dissection is identified. There is no pneumothorax or pleural effusion. There is no consolidation to suggest pneumonia. There is a calcified granuloma within the right middle lobe. Note is made of asymmetric thickening and increased attenuation within the right lower chest wall musculature extending into the right upper abdominal wall musculature. There is adjacent stranding. No active extravasation is identified. This intramuscular hematomas better depicted on the CT of the abdomen and pelvis. IMPRESSION: 1. No pulmonary emboli identified. 2. Acute intramuscular hematoma within the right lower chest/upper abdominal wall, as described above. This is better depicted on the abdomen and pelvis CT. Adjacent stranding consistent with hemorrhage. Overall, moderate hemorrhage. No active extravasation. 3. Aneurysmal dilatation of the ascending aorta measuring 4.6 cm at the level of the main pulmonary artery. ACT 112: Negative or not required by law. Electronically signed by: Juan Brennan M.D. 10/01/2024 9:28 AM Supervising Physician Co-Signing Physician Notes I personally saw and examined the patient. I independently reviewed the labs, EKG, imaging, problem list, medication list, past medical history and family history. I verified all reynolds points and agree with Estella Dunn PA-C with the following exceptions and/or additions: 64 year old male presents to the ER with cough. Ongoing for the last month. Comes in today due to right sided chest pain. Only occurs with coughing. O/E HS RRR, no murmurs, Chest CTAB, Ches wall pain on palpation over right lateral chest, Abdo SNT, no pedal edema A/P Cough - recommend stopping ARB as this can prolong symptoms, can likely restart once cough has resolved. No GERD or post nasal drip from history. Recommend trial of albuterol as outpatient as post viral reactive airway disease appears to be the most likely diagnosis. Can use dextromethorphan initially to see whether this break his cough reflex cycle. Chest pain - this appears to be related to his chest wall hematoma, I do not suspect ACS and it has not exertional component Elevated troponin - continue to trend as not definitively down trending at this time. TTE to assess for wall motion abnormalities. Really minimal symptoms to cause this degree of elevation and I would consider cardiology follow up or at least stress testing with his PCP as outpatient. Granular casts in urine - this also appears to be a reasonable reason for hold his ARB currently, suspect he is not drinking well in the setting of ARB use causing this PG Care Time/CCT Total # of Minutes Spent Total Time Spent with Patient: Total time spent is greater than 50% in coordination of care (as documented) at patient's floor/unit and/or counseling patient: Coding Level of Care Code 78396 INT INP/OBS CARE 2/55MIN Diagnoses Chest wall hematoma S20.211A Encounter type: initial encounter Laterality: right Elevated troponin I level R79.89 HTN (hypertension) I10 (1) Chest wall hematoma Encounter type: initial encounter Laterality: right Qualified Code(s): S20.211A - Contusion of right front wall of thorax, initial encounter
[2024-10-01 10:54] LABS: Adenovirus PCR Not Detected (NotDetected); Bordetella parapertussis PCR Not Detected (NotDetected); Bordetella pertussis PCR Not Detected (NotDetected); Chlamydia pneumoniae PCR Not Detected (NotDetected); Coronavirus 229E PCR Not Detected (NotDetected); Coronavirus CoV-2 (COVID19)PCR Not Detected (NotDetected); Coronavirus HKU1 PCR Not Detected (NotDetected); Coronavirus NL63 PCR Not Detected (NotDetected); Coronavirus OC43PCR Not Detected (NotDetected); Human Metapneumovirus PCR Not Detected (NotDetected); Influenza A PCR Not Detected (NotDetected); Influenza B PCR Not Detected (NotDetected); Mycoplasma pneumoniae PCR Not Detected (NotDetected); Parainfluenza Virus 1 PCR Not Detected (NotDetected); Parainfluenza Virus 2 PCR Not Detected (NotDetected); Parainfluenza Virus 3 PCR Not Detected (NotDetected); Parainfluenza Virus 4 PCR Not Detected (NotDetected); Respiratory Syncytial VirusPCR Not Detected (NotDetected); Rhinovirus/Enterovirus PCR Not Detected (NotDetected)
[2024-10-01] MEDS ORDERED: ONDANSETRON INJ 2 MG/ML 2 ML VIAL IV PRN (11:31)
[2024-10-01] MEDS ORDERED: ACETAMINOPHEN 325 MG TAB PO PRN (11:31)
[2024-10-01] MEDS ORDERED: DEXTROMETHORPHAN POLYMR COMPLX 30 MG/5 ML UDP PO PRN (12:11)
[2024-10-01] MEDS ORDERED: ALBUT/IPRATROP 3MG/0.5MG NEB 3 ML VIAL NEB PRN (16:25)
[2024-10-01] MEDS: DEXTROMETHORPHAN POLYMR COMPLX 30 MG/5 ML UDP PO PRN (21:49)
--- NOTE | 2024-10-01 22:02 | XCELERA ---
[id number]
--- NOTE | 2024-10-02 07:10 | Electrocardiogram Report ---
Test Reason : Blood Pressure : */* mmHG Vent. Rate : 47 BPM Atrial Rate : 47 BPM P-R Int : 154 ms QRS Dur : 98 ms QT Int : 464 ms P-R-T Axes : 62 24 32 degrees QTcB Int : 410 ms Sinus bradycardia Otherwise normal ECG No previous ECGs available Confirmed by Romulo Stinson ([id number]) on 10/02/2024 7:10:21 AM Referred By: Confirmed By: Romulo Stinson
[2024-10-02 07:14] LABS: BUN Creatinine Ratio 21.4 (10-20); Calcium 8.4 mg/dl (8.6-10.3); Creatinine Clr Calc Pharmacy 132.6 ml/min; Potassium 4.3 mmol/L (3.5-5.1)
[2024-10-02 07:37] LABS: Troponin I High Sensitivity 123.1 pg/ml (0-20)
[2024-10-02] MEDS ORDERED: LOSARTAN POTASSIUM 50 MG TAB PO SCH (09:00)
[2024-10-02] MEDS: LOSARTAN POTASSIUM 50 MG TAB PO SCH (10:27)
[2024-10-02 10:53] LABS: Hematocrit (blood only) 44.4 % (42.0-52.0); Hemoglobin 15.1 g/dl (14.0-18.0)
[2024-10-02 11:39] VITALS: RESP 20; TEMP 98.6; O2SAT 96
--- NOTE | 2024-10-02 11:46 | Discharge Summary ---
Discharge Summary Date of Service October 02, 2024 Principal Dx & Hospital Course #1 = Principal Diagnosis (1) Chest wall hematoma: He appears to have developed a subcostal muscle tear with hematoma formation on the right side probably from his incessant coughing. Hemoglobin is stable. Local care. He can use a heating pad 2 or 3 times a day if needed to help hasten resolution of the hematoma. Hemoglobin is stable. He denies any significant pain (2) Elevated troponin I level: No evidence of acute coronary syndrome. Cardiac echo reveals normal left ventricular wall motion. EKG is nonacute (3) HTN (hypertension): Blood pressure slightly elevated today, October 02. Olmesartan has been reordered. ARB's do not cause chronic cough so this is not the issue. He is not on an TERESSA inhibitor. Plan Home today, October 02 Admission HPI Per Admitting Provider Mr. Turner is a pleasant 64-year-old male with past medical hypertension well- controlled with losartan and erectile dysfunction. He presented from home because of chest wall pain that has been ongoing for 2-3 weeks, in the setting of persistent cough x 6 weeks. No signs of nausea earlier this morning, which has resolved since presentation to ED. He states this chest wall pain is an intermittently sharp/stabbing pain most prominent while coughing. Reports that approximately 6 weeks ago he had a cold which resolved after a few days, but he cough has persisted. He saw his PCP on 09/12/2024 and was prescribed Augmentin x 7 days at that time. Patient reports no significant improvement in his cough after the course of antibiotic. He denies any past history of cardiac problems or heart failure. He denies ongoing post-nasal drip, GERD symptoms, exertional dyspnea or angina. He reports a stress test years ago was normal (no report in chart to review). Chest CT revealed moderate acute right lower chest/upper abdominal wall intramuscular hematoma. Chest x-ray and BNP were negative. EKG without ischemic changes. Patient is stable; normal vital signs, not hypoxic, afebrile, no leukocytosis, negative UA, negative respiratory bio fire. He took his morning dose of olmesartan. We discussed code status, he wishes to be a full code at this time. was present at bedside. Discharge Exam General-alert and oriented x3, no fever, no chills HEENT-head atraumatic and normocephalic, pupils equal and reactive to light, extraocular muscles intact Neck-no lymphadenopathy or thyromegaly, trachea midline Chest-clear to auscultation. No rales, wheezing or rhonchi Cardiac-regular rate and rhythm, normal S1 and S2 Abdomen-normal bowel sounds, no hepatosplenomegaly. Mildly tender to palpation in the right subcostal area Extremities-no cyanosis, clubbing, or edema Neuro-cranial nerves II through XII intact, motor and sensory function within normal limits, strength symmetrical, no focal deficits Psych-normal affect, normal mood Discharge Plan Discharge Items Patient Disposition: Home - Self-Care Reason For Visit: MYOCARDIAL STRAIN, COUGH Discharge Diagnosis: Right subcostal wall hematoma, troponin elevation without ACS Activity: Resume your previous activity Activity Comment: Avoid overexertion for 1 week Non-emergency contact: Primary Care Provider Call non-emergency contact if: your symptoms worsen Follow-up/Referrals: Lazaro Paez, [Primary Care Provider] - Diet: Regular Addtl Attending Provider Instructions: Avoid heavy lifting or overexertion for 1 week. All medications remain the same. Use a heating pad 3 times a day for the chest wall hematoma to help it r esolve faster Pending Studies at Discharge: No Stand-Alone Forms: Sunshine, Smoking Cessation Medications and DC Order Prescriptions: Continued sildenafil 50 mg tablet 50 mg PO DAILY PRN (Reason: sexual activity) Qty: 10 0RF Rx Instructions: administer 30 minutes to 4 hours before activity olmesartan 20 mg tablet 20 mg PO DAILY Qty: 90 3RF Discharge Orders: Discharge Order (Routine); Ordered 10/02/24 Ordered By: José Luis Tanner Admission Data Admit Date/Time: 10/01/24 10:26 Attending Provider: José Luis Tanner Admit Provider: Caleb Fontana Primary Care Provider: Lazaro Paez Other Providers: Estella Blanco Hospital Stay Data Consultations 10/01/24 09:01 ED Decision to Admit Stat Diagnostic Imagining Performed 10/01/24 07:23 CT abd pelvis IV con only Stat CT angio chest PE protocol Stat Pending Results Patient Have Any Pending Studies at Discharge: No Discharge Instructions Given to Patient (Per Discharging Provider) Avoid heavy lifting or overexertion for 1 week. All medications remain the same. Use a heating pad 3 times a day for the chest wall hematoma to help it resolve faster Total Time Total Time Spent Total Time Spent (In Minutes): 45 minutes Coding Level of Care Code 94832 INP/OBS DISCH >30 MIN Diagnoses Chest wall hematoma S20.211A Encounter type: initial encounter Laterality: right Elevated troponin I level R79.89 HTN (hypertension) I10
[2024-10-02 11:47] VITALS: BP 144/84; PULSE 54
== END 2024-10-02 12:18 | disposition home or self-care (01) ==
LOC: ED 06:11 → EDINP 06:11 → SUATTDRO 10:26 → 2N 11:31

== ENCOUNTER 2024-10-04 04:56 | Observation (INO) ==
--- NOTE | 2024-10-04 05:12 | Emergency Department Note ---
Impression & Plan Chest pain, Erectile dysfunction, Chest wall hematoma, Superficial bruising of abdominal wall ED Provider Note NAME: MORTEZA THOMAS AGE: 64 SEX: M : 1960 ARRIVES VIA: Walk-In INFORMANT: Patient ED PROVIDER(S): Philippe Salazar DO CHIEF COMPLAINT: Right lower chest wall pain with bruising along the abdomen HPI: Patient is a 64-year-old male with a past medical history of hypertension who was just recently admitted and discharged for a chest wall hematoma and coughing. Patient notes that he has had a cough and congestion for the past 3 weeks. Coughing has been improving. He has been having persistent pain in that right lower chest wall and it worsened this morning/tonight. He notes he is also noticed bruising on the lower abdomen which is new from being discharged. Denies any headache or change in vision. No shortness of breath. He has pain in his belly in the right upper quadrant but otherwise just notices the bruising. No dysuria, urgency, or frequency. No other exacerbating or remitting factors. ADDITIONAL HISTORY OBTAINED: Per HPI Chronic Medical/Social Conditions Affecting Care: Per HPI PAST MEDICAL HISTORY:See Below PAST SURGICAL HISTORY:See Below FAMILY HISTORY:See Below SOCIAL HISTORY:See Below HOME MEDICATIONS:See Below ALLERGIES:See Below VITALS:See Below PHYSICAL EXAMINATION: GENERAL: Sitting up in bed, alert, coughing holding lower abdomen EYE EXAM: normal conjunctiva. OROPHARYNX: mucous membranes are moist LUNGS: Clear to auscultation. Normal chest wall mechanics CHEST: Tenderness over the right upper chest wall HEART: no murmurs, S1 normal and S2 normal ABDOMEN: abdomen soft, non-tender, normo-active bowel sounds, no masses, no rebound or guarding. Bruising over the right lower abdomen wrapping around to the umbilicus UPPER EXTREMITIES: upper extremities are grossly normal. LOWER EXTREMITIES: No pitting edema. NEURO EXAM: Normal sensorium, cranial nerves II-XII grossly intact, normal speech, no gross weakness of arms, no gross weakness of legs. MEDICAL DECISION MAKING: Patient is a 64-year-old male who presents ER for the above-stated complaint. IV was established and blood work was obtained. Labs show mild leukocytosis of 13,000. Hemoglobin of 14.8 which is consistent with his hemoglobin on 10/02 at 15. BMP along with LFTs was unremarkable. Troponin was elevated at 128 but consistent with his for previous from 10/01-10/02 which range from 150-120s. External records were reviewed any head and echo which was unremarkable and he was discharged. Presents for worsening focal pain which is same pain that he was having in combination with bruising on his lower abdomen. I do feel this is consistent with ACS. It is not exertional but rather on palpation with a hematoma. He was given IV morphine and x 2. EKG was nondiagnostic. Patient did become hypoxic after 1 dose of pain meds. He required several others. He was consequently discussed with the hospitalist Dr. Saldaña for further evaluation management treatment. Consults/Care Managements Discussions: Per [facility] Triage Nursing notes reviewed. Limited review of prior medical records performed Vital Signs: reviewed and remarkable for no significant abnormalities Differential diagnosis: Cardiac ischemia, aortic dissection, pulmonary embolism, pneumothorax, pneumonia, pericarditis, myocarditis, esophageal rupture, GERD, cholecystitis, pancreatitis, musculoskeletal, as well as other pathologies. ER treatment provided: See below Diagnostics interpreted by me include EKG and cardiac monitoring as listed below: -Cardiac Monitoring: An order was placed for continuous cardiac monitoring. The monitor shows a rate of 55 with sinus rhythm. -ECG: Sinus rhythm rate of 52 Normal axis No PVCs QTc 438 -Laboratory studies:Interpreted by me as stated above in MDM and shown below. Imaging studies: Xrays: As interpreted by me:none CTs show: CTs of the chest abdomen pelvis show hematoma Procedures:none Critical Care: None Past Med/Surg History Problem List (Updated 10/04/24 @ 12:14 by Atif Gavin DO, FACS) Rectus sheath hematoma Sensory abnormality of lumbar dermatome distribution Superficial bruising of abdominal wall (Acute) Chest wall hematoma (Acute) Chest wall hematoma (Acute) Elevated troponin I level (Acute) Chest pain (Acute) Erectile dysfunction (Acute) HTN (hypertension) Rosacea Right leg pain Class 2 obesity due to excess calories with body mass index (BMI) of 38.0 to 38.9 in adult Family History Other Ovarian cancer Denies family history of Prostate cancer Breast cancer Colorectal cancer Social History Smoking Status: Never smoker Tobacco Type: Smokeless Tobacco (Dip or Chew) Second Hand Exposure: No; Do You Dip or Chew Tobacco: Yes; Hx Alcohol Use: No Hx Substance Use: No Preferred Language: [place] Communication Ability: Effective Hearing Ability: Normal Process Control Operator Required: No Beliefs That Will Affect Care: None marital status: Current Living Situation: Spouse current occupational status: employed Other Information That Helps Us Care for You: No Feels Safe at Home: Yes Safety Concerns: Feels Safe At This Time Childhood Exposure to Second-Hand Smoke: Yes Diet: regular caffeine: Yes Physical Activity Frequency: Daily Physical Activity Frequency Comment: Active lifestyle Assistive Devices: Contacts Assistive Devices Comment: contacts are not with pt Allergies Allergies Allergy/AdvReac Type Severity Reaction Status Date / Time No Known Allergies Allergy Verified 10/04/24 08:10 Home Meds Previous Rx's Medication Instructions Recorded olmesartan 20 mg tablet 20 mg PO DAILY #90 tabs 05/22/24 sildenafil 50 mg tablet 50 mg PO DAILY PRN sexual activity 08/26/24 #10 tabs Results & Data (ED) Vital Signs Vital Signs - 24 hr 10/04/24 05:01 10/04/24 05:43 10/04/24 06:07 Temperature 36.8 C Temperature Source Temporal Artery Scan Pulse Rate 56 L 53 L 55 L Pulse Rate [Apical] Pulse Rate from SpO2 Sensor Pulse Rhythm [Apical] Pulse Strength [Apical] Respiratory Rate 20 Respiratory Effort / Characteristics Non-Labored Spontaneous Respiratory Depth Normal Respiratory Pattern Blood Pressure 113/72 Blood Pressure [Left Arm] Blood Pressure Mean 85 Blood Pressure Mean [Left Arm] Blood Pressure Position [Left Arm] Pulse Oximetry 97 92 Oxygen Delivery Method Room Air Room Air Oxygen Flow Rate Sepsis Recent Fever Within 48 Hours No Sepsis New/Unexplained Change in Mental Status No Sepsis Action Taken by Nursing No Action Required 10/04/24 06:44 10/04/24 07:00 10/04/24 07:04 Temperature Temperature Source Pulse Rate Pulse Rate [Apical] 57 L 56 L Pulse Rate from SpO2 Sensor Pulse Rhythm [Apical] Regular Pulse Strength [Apical] Normal Respiratory Rate 18 14 Respiratory Effort / Characteristics Non-Labored Spontaneous Non-Labored Spontaneous Respiratory Depth Normal Normal Respiratory Pattern Regular Regular Blood Pressure Blood Pressure [Left Arm] 127/63 169/96 H Blood Pressure Mean Blood Pressure Mean [Left Arm] 84 120 Blood Pressure Position [Left Arm] Lying Pulse Oximetry 96 88 L 97 Oxygen Delivery Method Room Air Room Air Nasal Cannula Oxygen Flow Rate 2 Sepsis Recent Fever Within 48 Hours Sepsis New/Unexplained Change in Mental Status Sepsis Action Taken by Nursing 10/04/24 07:36 Temperature Temperature Source Pulse Rate 56 L Pulse Rate [Apical] Pulse Rate from SpO2 Sensor 60 Pulse Rhythm [Apical] Pulse Strength [Apical] Respiratory Rate 16 Respiratory Effort / Characteristics Respiratory Depth Respiratory Pattern Blood Pressure 124/100 Blood Pressure [Left Arm] Blood Pressure Mean 108 Blood Pressure Mean [Left Arm] Blood Pressure Position [Left Arm] Pulse Oximetry 98 Oxygen Delivery Method Nasal Cannula Oxygen Flow Rate 2 Sepsis Recent Fever Within 48 Hours Sepsis New/Unexplained Change in Mental Status Sepsis Action Taken by Nursing Laboratory Data 10/04/24 05:19 10/04/24 05:19 Lab Results 10/04/24 10/04/24 Range/Units 05:19 05:20 WBC 13.02 H (4.8-10.8) K/ul RBC 4.87 (4.70-6.10) M/uL Hgb 14.8 (14.0-18.0) g/dl POC Hgb 15.6 (14.0-18.0) g/dl Hct 44.4 (42.0-52.0) % POC Hct 46 (42-52) % MCV 91.2 (80.0-100.0) fL MCH 30.4 (25.0-34.0) pg MCHC 33.3 (32.0-36.0) g/dL RDW Std Deviation 40.1 (36.4-46.3) fL RDW Coeff of Ruth 12.1 (11.5-14.5) % Plt Count 333 (130-400) K/uL MPV 9.7 (9.4-12.4) fL Immature Gran % (Auto) 0.9 % Neut % (Auto) 79.7 % Lymph % (Auto) 11.6 % [place] % (Auto) 6.7 % Eos % (Auto) 0.7 % Baso % (Auto) 0.4 % Neut # (Auto) 10.38 H (1.40-6.50) K/uL Lymph # (Auto) 1.51 (1.20-3.40) K/uL [place] # (Auto) 0.87 H (0.11-0.59) K/uL Eos # (Auto) 0.09 (0.00-0.50) K/uL Baso # (Auto) 0.05 (0.00-0.20) K/uL Immature Gran # (Auto) 0.12 (0.01-0.20) K/uL POC Sodium 138 (135-144) mmol/L Sodium 137 (136-145) mmol/L POC Potassium 4.1 (3.3-5.0) mmol/L Potassium 4.1 (3.5-5.1) mmol/L POC Chloride 100 L (101-112) mmol/L Chloride 101 (98-107) mmol/L Carbon Dioxide 31 (21-32) mmol/L POC Total CO2 30 (24-31) mmol/L Anion Gap 5 (3-11) POC Anion Gap 14.0 L (16-25) mmol/L POC BUN 17 (7-18) mg/dl BUN 17 (6-23) mg/dl Creatinine 0.93 (0.6-1.4) mg/dl POC Creatinine 0.9 (0.6-1.3) mg/dl Est Cr Clr Drug Dosing 114.9 ml/min eGFR 92.27 BUN/Creatinine Ratio 18.3 (10-20) Glucose 185 H (70-99(Fasting)) mg/dl POC Glucose (other) 178 H (70-99) mg/dl Calcium 8.7 (8.6-10.3) mg/dl POC Ioniz Calcium Sandeep 1.14 (1.12-1.32) mmol/l Total Bilirubin 0.7 (0.2-1.0) mg/dl AST 23 (13-39) U/L ALT 20 (7-52) U/L Alkaline Phosphatase 91 (34-104) U/L Troponin I High Sens 128.5 H* (0-20) pg/ml Total Protein 6.9 (6.0-8.3) gm/dl Albumin 4.4 (3.4-5.0) gm/dl Globulin 2.5 (2.5-4.0) gm/dl Albumin/Globulin Ratio 1.8 (0.9-2) Lipase 18 (11-82) U/L Administered Medications Gabapentin (Gabapentin 100 Mg Cap) 100 mg PO TID SOCORRO Stop: 11/03/24 08:59 Last Admin: 10/04/24 20:16 Dose: 100 mg Documented By: Admin: 10/04/24 13:26 Dose: 100 mg Documented By: Admin: 10/04/24 10:37 Dose: 100 mg Documented By: ALESSANDRO Losartan Potassium (Losartan Potassium 50 Mg Tab) 50 mg PO DAILY SOCORRO Stop: 11/03/24 10:28 Last Admin: 10/04/24 11:53 Dose: 50 mg Documented By: ALESSANDRO Miscellaneous (Remove Lidoderm Patch) 1 each N/A DAILY@2100 SOCORRO Stop: 11/03/24 20:59 Last Admin: 10/04/24 20:15 Dose: 1 each Documented By: DRE Tramadol HCl (Tramadol Hcl 50 Mg Tablet) 50 mg PO Q4H PRN PRN Reason: Moderate Pain (Scale 4, 5, 6) Stop: 11/03/24 07:55 Last Admin: 10/04/24 20:17 Dose: 50 mg Documented By: Admin: 10/04/24 10:47 Dose: 50 mg Documented By: ALESSANDRO Discontinued Medications Potassium Chloride/Sodium Chloride (Normal Saline W/20 Meq Kcl) 20 meq in 1,000 mls @ 100 mls/hr IV .Q10H SOCORRO Stop: 10/04/24 17:59 Last Infusion: 10/04/24 18:31 Dose: Infused Documented By: Admin: 10/04/24 09:27 Dose: 100 mls/hr Documented By: LATISHA Ioversol (Optiray 320 100ml) 94 ml IV ONCE ONE Stop: 10/04/24 05:33 Last Admin: 10/04/24 05:32 Dose: 94 ml Documented By: TAMI Lidocaine (Lidocaine 5% 1 Patch) 1 patch TD NOW STA Stop: 10/04/24 07:55 Last Admin: 10/04/24 09:27 Dose: 1 patch Documented By: LATISHA Morphine Sulfate (Morphine Sulfate 4 Mg/Ml 1 Ml Carp\Vial) 4 mg IV NOW STA Stop: 10/04/24 05:11 Last Admin: 10/04/24 05:17 Dose: 4 mg Documented By: Morphine Sulfate (Morphine Sulfate 4 Mg/Ml 1 Ml Carp\Vial) 4 mg IV NOW STA Stop: 10/04/24 06:22 Last Admin: 10/04/24 06:40 Dose: 4 mg Documented By: Morphine Sulfate (Morphine Sulfate 4 Mg/Ml 1 Ml Carp\Vial) 4 mg IV NOW STA Stop: 10/04/24 07:12 Last Admin: 10/04/24 08:11 Dose: 4 mg Documented By: LATISHA Ondansetron HCl (Ondansetron Inj 2 Mg/Ml 2 Ml Vial) 4 mg IV NOW STA Stop: 10/04/24 05:11 Last Admin: 10/04/24 05:17 Dose: 4 mg Documented By: Discharge Plan Visit Data Chief Complaint: Abdominal Pain Stated Complaint: BRUISING ON ABD, ABD PAIN, NAUSEA ED Provider: Philippe Salazar Discharge Problem: Chest pain, Erectile dysfunction, Chest wall hematoma, Superficial bruising of abdominal wall Patient Disposition: Admitted As Inpatient Discharge Instructions Interventions: ED Discharge Assessment Last Done: 10/04/24 10:25 Discharge Problem: Chest pain Qualifiers: Chest pain type: unspecified Qualified Code(s): R07.9 - Chest pain, unspecified Erectile dysfunction Qualifiers: Erectile dysfunction type: unspecified Qualified Code(s): N52.9 - Male erectile dysfunction, unspecified Chest wall hematoma Qualifiers: Encounter type: initial encounter Laterality: unspecified laterality Qualified Code(s): S20.219A - Contusion of unspecified front wall of thorax, initial encounter Superficial bruising of abdominal wall Qualifiers: Encounter type: initial encounter Qualified Code(s): S30.1XXA - Contusion of abdominal wall, initial encounter
[2024-10-04] MEDS: ONDANSETRON INJ 2 MG/ML 2 ML VIAL IV STA (05:17)
[2024-10-04] MEDS: MoRPHine SULFATE 4 MG/ML 1 ML CARP\\VIAL IV STA ×3 (05:17→08:11)
[2024-10-04 05:32] LABS: iSTAT Creatinine 0.9 mg/dl (0.6-1.3); iSTAT Hemoglobin 15.6 g/dl (14.0-18.0); iSTAT Ionized Calcium 1.14 mmol/l (1.12-1.32); iSTAT Potassium 4.1 mmol/L (3.3-5.0)
[2024-10-04] MEDS: OPTIRAY 320 100ml IV ONE (05:32)
[2024-10-04 05:44] LABS: Basophils # (auto) 0.05 K/uL (0.00-0.20); Basophils % (auto) 0.4 %; Eosinophils # (auto) 0.09 K/uL (0.00-0.50); Eosinophils % (auto) 0.7 %; Hematocrit (blood only) 44.4 % (42.0-52.0); Hemoglobin 14.8 g/dl (14.0-18.0); Immature Granulocytes # (auto) 0.12 K/uL (0.01-0.20); Immature Granulocytes % (auto) 0.9 %; Lymphocytes # (auto) 1.51 K/uL (1.20-3.40); Lymphocytes % (auto) 11.6 %; Mean Corpuscular Hemoglobin 30.4 pg (25.0-34.0); Mean Corpuscular Hgb Conc 33.3 g/dL (32.0-36.0); Mean Corpuscular Volume 91.2 fL (80.0-100.0); Mean Platelet Volume 9.7 fL (9.4-12.4); Monocytes # (auto) 0.87 K/uL (0.11-0.59); Monocytes % (auto) 6.7 %; Neutrophils # (auto) 10.38 K/uL (1.40-6.50); Neutrophils % (auto) 79.7 %; Platelet Count 333 K/uL (130-400); RDW Coefficient of Variation 12.1 % (11.5-14.5); RDW Standard Deviation 40.1 fL (36.4-46.3); Red Blood Count 4.87 M/uL (4.70-6.10); White Blood Count 13.02 K/ul (4.8-10.8)
[2024-10-04 05:58] LABS: Albumin Globulin Ratio 1.8 (0.9-2); Albumin Level 4.4 gm/dl (3.4-5.0); BUN Creatinine Ratio 18.3 (10-20); Bilirubin,Total 0.7 mg/dl (0.2-1.0); Calcium 8.7 mg/dl (8.6-10.3); Creatinine Clr Calc Pharmacy 114.9 ml/min; Globulin 2.5 gm/dl (2.5-4.0); Potassium 4.1 mmol/L (3.5-5.1); Total Protein 6.9 gm/dl (6.0-8.3)
[2024-10-04 06:12] LABS: Troponin I High Sensitivity 128.5 pg/ml (0-20)
--- NOTE | 2024-10-04 07:02 | CT Scan Report ---
EXAM: CT chest diagnostic w con CLINICAL HISTORY: Right upper chest wall pain and bruising, right abdominal wall pain w/ bruising. TECHNIQUE: Contiguous 3.[address] images of the chest were acquired with administration of intravenous contrast. Coronal and sagittal reconstructions were obtained. 94 ml Optiray 320 was administered for post-contrast images. One of the following dose reduction techniques were utilized for this exam: Automated exposure control, adjustment of the mA and/or kV according to patient size, and use of iterative reconstruction. COMPARISON: 10/01/2024 X-ray FINDINGS: Lungs: Few right upper calcific and non-calcific nodules, the largest measures 8.2 mm. The rest of the lungs are clear with no evidence of consolidation, collapse, or focal lesions. No ground-glass opacities or interstitial changes. No pleural effusion or pleural thickening. Mediastinum: No mediastinal mass or abnormal lymphadenopathy. Normal appearance of the thymus. Hilar Structures: Normal size and configuration, no enlargement. Heart and Great Vessels: The dilated ascending aorta measures 45 mm, follow-up is needed. The dilated pulmonary trunk measures 32 mm and could be pulmonary hypertension, clinical correlation is needed. Normal heart size and configuration. No pericardial effusion. Normal caliber and course of the thoracic aorta and other great vessels. No significant atherosclerosis or aneurysm. Normal enhancement of the great vessels post-contrast. Bones: Suspected right posterior glenoid fracture or detached osteophyte, clinical correlation is needed. Thoracic spine degenerative changes with osteophytes. Thoracic spine dextro-scoliosis. No fractures or lytic/sclerotic lesions. Normal bone density and alignment. No evidence of rib fractures. Chest Wall: No masses or soft tissue abnormalities. Please refer to the abdominal report for abdominal findings IMPRESSION: 1. Few right upper calcific and non-calcific nodules, the largest measuring 8.2 mm. Lung-RAD 2. 2. The dilated ascending aorta measures 45 mm, follow-up is needed. 3. The dilated pulmonary trunk measures 32 mm and could be related to pulmonary hypertension, clinical correlation is needed. 4. Thoracic spine degenerative changes with osteophytes. 5. Thoracic spine dextro-scoliosis. 6. Suspected right posterior glenoid fracture or detached osteophyte, clinical correlation is needed. Lung-RADS Category: 0 - Incomplete. Additional imaging needed. 1 - Negative. No nodules or definitely benign nodules. 2 - Benign appearance or behavior. Very low likelihood of malignancy. 3 - Probably benign. Short-term follow-up suggested. 4A - Suspicious. Consider additional diagnostic testing. 4B - Suspicious. Additional diagnostic testing and/or tissue sampling is suggested. 4X - Highly suspicious of malignancy. Urgent evaluation needed. Electronically signed by Mabel Corrigan 10-04-2024 07:02 AM
--- NOTE | 2024-10-04 07:08 | CT Scan Report ---
EXAM: CT abd pelvis IV con only CLINICAL HISTORY: r upper chest wall pain and bruising, right abd wall pain w/ bruising. TECHNIQUE: Contrast-enhanced CT of the abdomen and pelvis was performed, with the following protocol: axial images with, and reconstructed coronal and sagittal images. 94 ml Optiray 320 Intravenous contrast was administered. One of the following dose reduction techniques was utilized for this exam: Automated exposure control, adjustment of the mA and/or kV according to patient size, and use of iterative reconstruction. COMPARISON: None. FINDINGS: Large upper right anterior abdominal wall muscular soft tissue masses, the largest measuring 12.5x4.7x11.2 cm, could be muscular hematomas, regarding the patient history, yet follow-up and tissue sampling are needed if clinically warranted. Diffuse anterior abdominal wall edema, more on the right side. Tiny right anterior abdominal wall subcutanoeus metallic foreign body at the umbilical region. Abdomen: Liver: Normal in size, shape, and density. No focal lesions, cysts, or masses were identified. Hepatic vasculature and biliary ducts are unremarkable. Gallbladder and Biliary System: The gallbladder is normal in size and shape with small stone inside. No wall thickening, pericholecystic fluid, or gallstones were identified. The common bile duct is normal in caliber without dilation. Pancreas: Pancreatic head, body, and tail are visualized and appear normal in size and density. No pancreatic masses or calcifications were noted. The pancreatic duct is not dilated. Spleen: Normal in size, shape, and density. No splenic lesions or masses were identified. Kidneys and Adrenal Glands: Both kidneys are normal in size, shape, and position. Cortical thickness is within normal limits. No renal calculi or hydronephrosis. Adrenal glands are unremarkable with no evidence of masses or hyperplasia. Pelvis: Urinary Bladder: Mild thickened wall urinary bladder could be cystitis. Prostate: Mild enlarged prostate. Seminal Vesicles: Normal in size and appearance. No abnormalities noted. Rectum and Sigmoid Colon: Normal wall thickness and no evidence of mass. Peritoneal and Retroperitoneal Structures: No free fluid or abnormal fluid collections were identified within the abdomen or pelvis. No lymphadenopathy was noted. Bowel: Non complicated colonic diverticulosis. The visualized bowel loops are normal in caliber and appearance. No evidence of bowel obstruction or wall thickening. Bones and Soft Tissues: Bilateral L4-L5 pars defects likely degenerative. Bilateral hip joints osteoarthritis. Lumbar spine degenerative changes. Lumbar levoscoliosis noted. IMPRESSION: 1. Large upper right anterior abdominal wall and lower right anterior chest wall muscular soft tissue swellings/masses, the largest measuring 12.5x4.7x11.2 cm, likely presenting right rectus sheath hematoma extending to lower right chest wall. Need active arterial phase study/CT angiography to rule out active bleeder. 2. Tiny right anterior abdominal wall subcutaneous metallic foreign body at the umbilical region. 3. Diffuse anterior abdominal wall edema, more on the right side could be soft tissue contusions. 4. Cholelithiasis. 5. Mild thickened wall of urinary bladder, could be cystitis. 6. Mild enlarged prostate. 7. Non-complicated colonic diverticulosis. 8. Bilateral L4-L5 pars defects are likely degenerative. Electronically signed by Mabel Corrigan 10-04-2024 07:08 AM
[2024-10-04] MEDS ORDERED: MoRPHine SULFATE 4 MG/ML 1 ML CARP\\VIAL IV PRN (07:56)
--- NOTE | 2024-10-04 08:18 | History & Physical Report ---
Date of Service October 04, 2024 Assessment & Plan (1) Superficial bruising of abdominal wall: (2) Chest wall hematoma: (3) Sensory abnormality of lumbar dermatome distribution: (4) Elevated troponin I level: Plan The patient is a 64-year-old male with a past medical history including elevated troponin level, hypertension, rosacea, class II obesity, and ED. He presents to the emergency department due to worsening symptoms of right lower chest wall pain, but more concerning to him as the development of new right lower abdominal and pelvic pain, and bruising along the right dermatomal area toward the right groin. He was given morphine 4 mg IV from the ED for pain control, however, he developed significant hypoxia into the 80s, and is now presently on 2 L oxygen with pulse ox 98%. Chest wall hematoma/ecchymosis and numbness lumbar dermatomal distribution- CT scan with muscular hematomas, with largest measuring 12.5 x 4.7 x 11.[address] cm[address] Noted on previous CT Patient has new right lower dermatomal distribution ecchymosis. Needs to be followed for possible development of herpes zoster infection. Started Lidoderm patch Start gabapentin 100 mg p.o. 3 times daily Patient was given morphine 4 mg IV for pain control, has become hypoxic at this point Acetaminophen 650 mg by mouth every 6 hours as needed for mild pain or fever Tramadol 50 mg by mouth every 4 hours as needed for moderate pain Morphine sulfate 2 mg IV every 3 hours as needed for severe pain Elevated troponin/hypertension- Troponin 128.5, similar to previous admissions Had a complete echocardiogram on 10/01/2024 and ejection fraction 60-65% Repeat troponin for stability Continue olmesartan Mild dehydration- Placed on NSS + KCl 20 mill equivalents at 100 mL/h x 1 L Hyperglycemia- Glucose 185 on admission Checking hemoglobin A1c. Do not place on Accu-Cheks unless A1c is elevated History of Present Illness Chief Complaint: The patient presents to the emergency department with an acute worsening of right lower chest wall pain, but in particular has developed new bruising along lower abdominal/pelvic dermatome with new pain compared to recent admission from 10/01-10/02/2024. Primary Care Provider: Lazaro Paez, The patient is a 64-year-old male with a past medical history including elevated troponin level, hypertension, rosacea, class II obesity, and ED. He presents to the emergency department due to worsening symptoms of right lower chest wall pain, but more concerning to him as the development of new right lower abdominal and pelvic pain, and bruising along the right dermatomal area toward the right groin. H pain Allergies Allergy/AdvReac Type Severity Reaction Status Date / Time No Known Allergies Allergy Verified 10/04/24 08:10 Home Medications Medication Instructions Recorded Confirmed Type olmesartan 20 mg tablet 20 mg PO DAILY #90 tabs 05/22/24 10/04/24 Rx sildenafil 50 mg tablet 50 mg PO DAILY PRN sexual activity 08/26/24 10/04/24 Rx #10 tabs Past Med/Surg History Problem List (Updated 10/04/24 @ 08:12 by Jersey Waller MD) Sensory abnormality of lumbar dermatome distribution Superficial bruising of abdominal wall (Acute) Chest wall hematoma (Acute) Chest wall hematoma (Acute) Elevated troponin I level (Acute) Chest pain (Acute) Erectile dysfunction (Acute) HTN (hypertension) Rosacea Right leg pain Class 2 obesity due to excess calories with body mass index (BMI) of 38.0 to 38.9 in adult Family History Other Ovarian cancer Denies family history of Prostate cancer Breast cancer Colorectal cancer Social History Smoking Status: Never smoker Tobacco Type: Smokeless Tobacco (Dip or Chew) Second Hand Exposure: No; Do You Dip or Chew Tobacco: Yes; Hx Alcohol Use: No Hx Substance Use: No Preferred Language: Faroese Communication Ability: Effective Hearing Ability: Normal Hr Systems Analyst Required: No Beliefs That Will Affect Care: None marital status: Current Living Situation: Spouse current occupational status: employed Feels Safe at Home: Yes Childhood Exposure to Second-Hand Smoke: Yes Diet: regular caffeine: Yes Physical Activity Frequency: Daily Physical Activity Frequency Comment: Active lifestyle Assistive Devices: None Review of Systems Review of Systems: The patient denies chest pain, palpitations, lower extremity swelling, sore throat, fevers, chills, nausea, vomiting, diarrhea , constipation, abdominal pain, pelvic pain, blood in urine or stool, dysuria, urinary frequency or urgency, lightheadedness, dizziness, headache, memory loss, loss of consciousness, rash, abnormal bruising or bleeding, imbalance, focal or generalized weakness, numbness or tingling in arms or legs, generalized arthralgias or myalgias, back or neck pain, or night sweats. The review of systems is otherwise negative other than for that already noted above, and at least 10 systems have been reviewed. Physical Exam Physical Exam: The patient is awake, alert and oriented 3, well developed and well nourished, normocephalic and atraumatic, lying in bed and in no acute distress. HEENT--PERRL, EOMI, mucous membranes and oropharynx dry. Neck--supple. No JVD. No bruits. Thyroid normal, trachea midline, no adenopathy. Heart--normal S1 and S2. No murmurs, rubs or gallops. Lungs--clear bilaterally, no respiratory distress, no accessory muscle use. Abdomen--normal bowel sounds and soft. Nontender. Nondistended, no hernias or masses, no organomegaly. Extremities--no cyanosis or clubbing. No edema. There are good distal pulses b/l. Dermatologic--along right lower flank there is ecchymosis extending to the groin Neurologic--cranial nerves II through XII grossly intact. Rheumatologic--normal range of motion. Psychiatric--normal affect. Results & Data Results & Data Vital Signs (Past 12 Hours) Vital Signs Temp Pulse Pulse Resp BP BP Pulse Ox 10/04/24 07:04 56 L 14 169/96 H 97 10/04/24 07:00 88 L 10/04/24 06:44 57 L 18 127/63 96 10/04/24 06:07 55 L 92 10/04/24 05:43 53 L 10/04/24 05:01 36.8 C 56 L 20 113/72 97 O2 Del Method O2 Flow Rate 10/04/24 07:04 Nasal Cannula 2 10/04/24 07:00 Room Air 10/04/24 06:44 Room Air 10/04/24 06:07 Room Air 10/04/24 05:43 10/04/24 05:01 Room Air Laboratory Results Laboratory Results WBC 13.02 K/ul (4.8-10.8) H 10/04/24 05:19 RBC 4.87 M/uL (4.70-6.10) 10/04/24 05:19 Hgb 14.8 g/dl (14.0-18.0) 10/04/24 05:19 POC Hgb 15.6 g/dl (14.0-18.0) 10/04/24 05:20 Hct 44.4 % (42.0-52.0) 10/04/24 05:19 POC Hct 46 % (42-52) 10/04/24 05:20 MCV 91.2 fL (80.0-100.0) 10/04/24 05:19 MCH 30.4 pg (25.0-34.0) 10/04/24 05:19 MCHC 33.3 g/dL (32.0-36.0) 10/04/24 05:19 RDW Std Deviation 40.1 fL (36.4-46.3) 10/04/24 05:19 RDW Coeff of Ruth 12.1 % (11.5-14.5) 10/04/24 05:19 Plt Count 333 K/uL (130-400) 10/04/24 05:19 MPV 9.7 fL (9.4-12.4) 10/04/24 05:19 Immature Gran % (Auto) 0.9 % 10/04/24 05:19 Neut % (Auto) 79.7 % 10/04/24 05:19 Lymph % (Auto) 11.6 % 10/04/24 05:19 Ceiba % (Auto) 6.7 % 10/04/24 05:19 Eos % (Auto) 0.7 % 10/04/24 05:19 Baso % (Auto) 0.4 % 10/04/24 05:19 Neut # (Auto) 10.38 K/uL (1.40-6.50) H 10/04/24 05:19 Lymph # (Auto) 1.51 K/uL (1.20-3.40) 10/04/24 05:19 Ceiba # (Auto) 0.87 K/uL (0.11-0.59) H 10/04/24 05:19 Eos # (Auto) 0.09 K/uL (0.00-0.50) 10/04/24 05:19 Baso # (Auto) 0.05 K/uL (0.00-0.20) 10/04/24 05:19 Immature Gran # (Auto) 0.12 K/uL (0.01-0.20) 10/04/24 05:19 POC Sodium 138 mmol/L (135-144) 10/04/24 05:20 Sodium 137 mmol/L (136-145) 10/04/24 05:19 POC Potassium 4.1 mmol/L (3.3-5.0) 10/04/24 05:20 Potassium 4.1 mmol/L (3.5-5.1) 10/04/24 05:19 POC Chloride 100 mmol/L (101-112) L 10/04/24 05:20 Chloride 101 mmol/L (98-107) 10/04/24 05:19 Carbon Dioxide 31 mmol/L (21-32) 10/04/24 05:19 POC Total CO2 30 mmol/L (24-31) 10/04/24 05:20 Anion Gap 5 (3-11) 10/04/24 05:19 POC Anion Gap 14.0 mmol/L (16-25) L 10/04/24 05:20 POC BUN 17 mg/dl (7-18) 10/04/24 05:20 BUN 17 mg/dl (6-23) 10/04/24 05:19 Creatinine 0.93 mg/dl (0.6-1.4) 10/04/24 05:19 POC Creatinine 0.9 mg/dl (0.6-1.3) 10/04/24 05:20 Est Cr Clr Drug Dosing 114.9 ml/min 10/04/24 05:19 eGFR 92.27 10/04/24 05:19 BUN/Creatinine Ratio 18.3 (10-20) 10/04/24 05:19 Glucose 185 mg/dl (70-99(Fasting)) H 10/04/24 05:19 POC Glucose (other) 178 mg/dl (70-99) H 10/04/24 05:20 Calcium 8.7 mg/dl (8.6-10.3) 10/04/24 05:19 POC Ioniz Calcium Sandeep 1.14 mmol/l (1.12-1.32) 10/04/24 05:20 Total Bilirubin 0.7 mg/dl (0.2-1.0) 10/04/24 05:19 AST 23 U/L (13-39) 10/04/24 05:19 ALT 20 U/L (7-52) 10/04/24 05:19 Alkaline Phosphatase 91 U/L (34-104) 10/04/24 05:19 Troponin I High Sens 128.5 pg/ml (0-20) H* 10/04/24 05:19 Total Protein 6.9 gm/dl (6.0-8.3) 10/04/24 05:19 Albumin 4.4 gm/dl (3.4-5.0) 10/04/24 05:19 Globulin 2.5 gm/dl (2.5-4.0) 10/04/24 05:19 Albumin/Globulin Ratio 1.8 (0.9-2) 10/04/24 05:19 Lipase 18 U/L (11-82) 10/04/24 05:19 Impressions Abdomen/Pelvis CT 10/04/24 05:10 EXAM: CT abd pelvis IV con only CLINICAL HISTORY: r upper chest wall pain and bruising, right abd wall pain w/ bruising. TECHNIQUE: Contrast-enhanced CT of the abdomen and pelvis was performed, with the following protocol: axial images with, and reconstructed coronal and sagittal images. 94 ml Optiray 320 Intravenous contrast was administered. One of the following dose reduction techniques was utilized for this exam: Automated exposure control, adjustment of the mA and/or kV according to patient size, and use of iterative reconstruction. COMPARISON: None. FINDINGS: Large upper right anterior abdominal wall muscular soft tissue masses, the largest measuring 12.5x4.7x11.2 cm, could be muscular hematomas, regarding the patient history, yet follow-up and tissue sampling are needed if clinically warranted. Diffuse anterior abdominal wall edema, more on the right side. Tiny right anterior abdominal wall subcutanoeus metallic foreign body at the umbilical region. Abdomen: Liver: Normal in size, shape, and density. No focal lesions, cysts, or masses were identified. Hepatic vasculature and biliary ducts are unremarkable. Gallbladder and Biliary System: The gallbladder is normal in size and shape with small stone inside. No wall thickening, pericholecystic fluid, or gallstones were identified. The common bile duct is normal in caliber without dilation. Pancreas: Pancreatic head, body, and tail are visualized and appear normal in size and density. No pancreatic masses or calcifications were noted. The pancreatic duct is not dilated. Spleen: Normal in size, shape, and density. No splenic lesions or masses were identified. Kidneys and Adrenal Glands: Both kidneys are normal in size, shape, and position. Cortical thickness is within normal limits. No renal calculi or hydronephrosis. Adrenal glands are unremarkable with no evidence of masses or hyperplasia. Pelvis: Urinary Bladder: Mild thickened wall urinary bladder could be cystitis. Prostate: Mild enlarged prostate. Seminal Vesicles: Normal in size and appearance. No abnormalities noted. Rectum and Sigmoid Colon: Normal wall thickness and no evidence of mass. Peritoneal and Retroperitoneal Structures: No free fluid or abnormal fluid collections were identified within the abdomen or pelvis. No lymphadenopathy was noted. Bowel: Non complicated colonic diverticulosis. The visualized bowel loops are normal in caliber and appearance. No evidence of bowel obstruction or wall thickening. Bones and Soft Tissues: Bilateral L4-L5 pars defects likely degenerative. Bilateral hip joints osteoarthritis. Lumbar spine degenerative changes. Lumbar levoscoliosis noted. IMPRESSION: 1. Large upper right anterior abdominal wall and lower right anterior chest wall muscular soft tissue swellings/masses, the largest measuring 12.5x4.7x11.2 cm, likely presenting right rectus sheath hematoma extending to lower right chest wall. Need active arterial phase study/CT angiography to rule out active bleeder. 2. Tiny right anterior abdominal wall subcutaneous metallic foreign body at the umbilical region. 3. Diffuse anterior abdominal wall edema, more on the right side could be soft tissue contusions. 4. Cholelithiasis. 5. Mild thickened wall of urinary bladder, could be cystitis. 6. Mild enlarged prostate. 7. Non-complicated colonic diverticulosis. 8. Bilateral L4-L5 pars defects are likely degenerative. Electronically signed by Mabel Corrigan 10-04-2024 07:[address] 10/04/24 05:10 EXAM: CT chest diagnostic w con CLINICAL HISTORY: Right upper chest wall pain and bruising, right abdominal wall pain w/ bruising. TECHNIQUE: Contiguous 3.[address] images of the chest were acquired with administration of intravenous contrast. Coronal and sagittal reconstructions were obtained. 94 ml Optiray 320 was administered for post-contrast images. One of the following dose reduction techniques were utilized for this exam: Automated exposure control, adjustment of the mA and/or kV according to patient size, and use of iterative reconstruction. COMPARISON: 10/01/2024 X-ray FINDINGS: Lungs: Few right upper calcific and non-calcific nodules, the largest measures 8.2 mm. The rest of the lungs are clear with no evidence of consolidation, collapse, or focal lesions. No ground-glass opacities or interstitial changes. No pleural effusion or pleural thickening. Mediastinum: No mediastinal mass or abnormal lymphadenopathy. Normal appearance of the thymus. Hilar Structures: Normal size and configuration, no enlargement. Heart and Great Vessels: The dilated ascending aorta measures 45 mm, follow-up is needed. The dilated pulmonary trunk measures 32 mm and could be pulmonary hypertension, clinical correlation is needed. Normal heart size and configuration. No pericardial effusion. Normal caliber and course of the thoracic aorta and other great vessels. No significant atherosclerosis or aneurysm. Normal enhancement of the great vessels post-contrast. Bones: Suspected right posterior glenoid fracture or detached osteophyte, clinical correlation is needed. Thoracic spine degenerative changes with osteophytes. Thoracic spine dextro-scoliosis. No fractures or lytic/sclerotic lesions. Normal bone density and alignment. No evidence of rib fractures. Chest Wall: No masses or soft tissue abnormalities. Please refer to the abdominal report for abdominal findings IMPRESSION: 1. Few right upper calcific and non-calcific nodules, the largest measuring 8.2 mm. Lung-RAD 2. 2. The dilated ascending aorta measures 45 mm, follow-up is needed. 3. The dilated pulmonary trunk measures 32 mm and could be related to pulmonary hypertension, clinical correlation is needed. 4. Thoracic spine degenerative changes with osteophytes. 5. Thoracic spine dextro-scoliosis. 6. Suspected right posterior glenoid fracture or detached osteophyte, clinical correlation is needed. Lung-RADS Category: 0 - Incomplete. Additional imaging needed. 1 - Negative. No nodules or definitely benign nodules. 2 - Benign appearance or behavior. Very low likelihood of malignancy. 3 - Probably benign. Short-term follow-up suggested. 4A - Suspicious. Consider additional diagnostic testing. 4B - Suspicious. Additional diagnostic testing and/or tissue sampling is suggested. 4X - Highly suspicious of malignancy. Urgent evaluation needed. Electronically signed by Mabel Corrigan 10-04-2024 07:02 AM Code Status & VTE Plan Code Status Full code VTE Prophylaxis Plan VTE Prophylaxis will be ordered: Yes PG Care Time/CCT Total # of Minutes Spent Total Time Spent with Patient: Total time spent is greater than 50% in coordination of care (as documented) at patient's floor/unit and/or counseling patient: Coding Level of Care Code 60169 INT INP/OBS CARE 75MIN Diagnoses Superficial bruising of abdominal wall S30.1XXA Encounter type: initial encounter Chest wall hematoma S20.219A Encounter type: initial encounter Laterality: unspecified laterality Sensory abnormality of lumbar dermatome distribution R20.8 Elevated troponin I level R79.89 (1) Superficial bruising of abdominal wall Encounter type: initial encounter Qualified Code(s): S30.1XXA - Contusion of abdominal wall, initial encounter (2) Chest wall hematoma Encounter type: initial encounter Laterality: unspecified laterality Qualified Code(s): S20.219A - Contusion of unspecified front wall of thorax, initial encounter
[2024-10-04] MEDS: NSS + 20MEQ KCL 20 MEQ/1,000 ML BAG IV SCH (09:27)
[2024-10-04] MEDS: LIDOCAINE 5% 1 PATCH TD STA (09:27)
[2024-10-04] MEDS ORDERED: ONDANSETRON INJ 2 MG/ML 2 ML VIAL IV PRN (10:29)
[2024-10-04] MEDS: GABAPENTIN 100 MG CAP PO SCH (10:37)
[2024-10-04] MEDS: traMADol HCL 50 MG TABLET PO PRN (10:47)
[2024-10-04 11:31] LABS: Estimated Average Glucose 123 mg/dl; Hemoglobin A1C 5.9 % (4.5-5.6)
[2024-10-04] MEDS: LOSARTAN POTASSIUM 50 MG TAB PO SCH (11:53)
--- NOTE | 2024-10-04 12:15 | Surgery Consultation ---
Date of Consultation October 04, 2024 Assessment & Plan (1) Rectus sheath hematoma: Nonexpanding rectus sheath hematoma, and H&H stable. No indication for surgery at this point. If concern for continued bleeding, would recommend a CTA, if this is positive then would likely need transfer for embolization at a tertiary center. The best thing to help with his pain control would be to treat the underlying coughing that he has had. Avoid any blood thinners. No surgical intervention indicated If concern for further bleeding, recommend CTA Treat underlying cough Surgery will sign off, call with questions or concerns (2) HTN (hypertension): (3) Superficial bruising of abdominal wall: (4) Class 2 obesity due to excess calories with body mass index (BMI) of 38.0 to 38.9 in adult: History of Present Illness Attending Physician: Jersey Waller MD History of Present Illness Consulted for rectus sheath hematoma. Patient had an upper respiratory infection and has had several days of significant coughing. He is not on any blood thinners. He was admitted a few days ago for a chest wall hematoma secondary to the coughing and a CT scan showed a rectus sheath hematoma with no active extravasation. He was discharged to home, however with continued coughing his pain again worsened. He does have some bruising on his lower abdomen. The pain is now more tolerable. It hurts mostly when he coughs or moves. No other trauma to the area. Allergies Allergy/AdvReac Type Severity Reaction Status Date / Time No Known Allergies Allergy Verified 10/04/24 08:10 Home Medications Medication Instructions Recorded Confirmed Type olmesartan 20 mg tablet 20 mg PO DAILY #90 tabs 05/22/24 10/04/24 Rx sildenafil 50 mg tablet 50 mg PO DAILY PRN sexual activity 08/26/24 10/04/24 Rx #10 tabs Patient History Family History Other Ovarian cancer Denies family history of Prostate cancer Breast cancer Colorectal cancer Social History Smoking Status: Never smoker Tobacco Type: Smokeless Tobacco (Dip or Chew) Second Hand Exposure: No; Do You Dip or Chew Tobacco: Yes; Hx Alcohol Use: No Hx Substance Use: No Preferred Language: Estonian Communication Ability: Effective Hearing Ability: Normal Scalder Required: No Beliefs That Will Affect Care: None marital status: Current Living Situation: Spouse current occupational status: employed Other Information That Helps Us Care for You: No Feels Safe at Home: Yes Safety Concerns: Feels Safe At This Time Childhood Exposure to Second-Hand Smoke: Yes Diet: regular caffeine: Yes Physical Activity Frequency: Daily Physical Activity Frequency Comment: Active lifestyle Assistive Devices: Contacts Assistive Devices Comment: contacts are not with pt Review of Systems Review of Systems: All systems reviewed & are unremarkable except as noted in HPI & below Physical Exam Constitutional: WD/WN, vitals as above + obese Respiratory: normal respiratory effort, lungs clear to auscultation Cardiovascular: RRR, no murmur, no edema Gastrointestinal (Abdomen): Inspection/Auscultation: + abdominal wall ecchymosis Percussion/Palpation: + abdomen tender (Right upper quadrant rectus sheath hematoma) and abdomen soft Results & Data Vital Signs (Past 12 Hours) Vital Signs Temp Pulse Pulse Resp BP BP Pulse Ox 10/04/24 10:31 36.8 C 60 18 151/85 H 97 10/04/24 10:05 60 16 163/107 H 97 10/04/24 09:06 60 14 120/82 97 10/04/24 08:27 57 L 16 120/94 97 10/04/24 08:09 64 16 125/82 98 10/04/24 07:36 56 L 16 124/100 98 10/04/24 07:04 56 L 14 169/96 H 97 10/04/24 07:00 88 L 10/04/24 06:44 57 L 18 127/63 96 10/04/24 06:07 55 L 92 10/04/24 05:43 53 L 10/04/24 05:01 36.8 C 56 L 20 113/72 97 O2 Del Method O2 Flow Rate 10/04/24 10:31 Room Air 10/04/24 10:05 Nasal Cannula 2 10/04/24 09:06 Nasal Cannula 2 10/04/24 08:27 Nasal Cannula 2 10/04/24 08:09 Nasal Cannula 2 10/04/24 07:36 Nasal Cannula 2 10/04/24 07:04 Nasal Cannula 2 10/04/24 07:00 Room Air 10/04/24 06:44 Room Air 10/04/24 06:07 Room Air 10/04/24 05:43 10/04/24 05:01 Room Air Laboratory Results Laboratory Results - last 24 hr 10/04/24 10/04/24 10/04/24 05:19 05:20 10:44 WBC 13.02 H RBC 4.87 Hgb 14.8 POC Hgb 15.6 Hct 44.4 POC Hct 46 MCV 91.2 MCH 30.4 MCHC 33.3 RDW Std Deviation 40.1 RDW Coeff of Ruth 12.1 Plt Count 333 MPV 9.7 Immature Gran % (Auto) 0.9 Neut % (Auto) 79.7 Lymph % (Auto) 11.6 [place] % (Auto) 6.7 Eos % (Auto) 0.7 Baso % (Auto) 0.4 Neut # (Auto) 10.38 H Lymph # (Auto) 1.51 [place] # (Auto) 0.87 H Eos # (Auto) 0.09 Baso # (Auto) 0.05 Immature Gran # (Auto) 0.12 POC Sodium 138 Sodium 137 POC Potassium 4.1 Potassium 4.1 POC Chloride 100 L Chloride 101 Carbon Dioxide 31 POC Total CO2 30 Anion Gap 5 POC Anion Gap 14.0 L POC BUN 17 BUN 17 Creatinine 0.93 POC Creatinine 0.9 Est Cr Clr Drug Dosing 114.9 eGFR 92.27 BUN/Creatinine Ratio 18.3 Glucose 185 H POC Glucose (other) 178 H Estimat Average Glucose 123 Hemoglobin A1c 5.9 H Calcium 8.7 POC Ioniz Calcium Sandeep 1.14 Total Bilirubin 0.7 AST 23 ALT 20 Alkaline Phosphatase 91 Troponin I High Sens 128.5 H* 127.1 H* Total Protein 6.9 Albumin 4.4 Globulin 2.5 Albumin/Globulin Ratio 1.8 Lipase [address] of the chest abdomen and pelvis were personally viewed and interpreted agree with the assessment of a rectus sheath hematoma. The study is limited due to lack of arterial phase, but does not appear to be significantly increased from last visit. Abdomen/Pelvis CT 10/04/24 05:10 EXAM: CT abd pelvis IV con only CLINICAL HISTORY: r upper chest wall pain and bruising, right abd wall pain w/ bruising. TECHNIQUE: Contrast-enhanced CT of the abdomen and pelvis was performed, with the following protocol: axial images with, and reconstructed coronal and sagittal images. 94 ml Optiray 320 Intravenous contrast was administered. One of the following dose reduction techniques was utilized for this exam: Automated exposure control, adjustment of the mA and/or kV according to patient size, and use of iterative reconstruction. COMPARISON: None. FINDINGS: Large upper right anterior abdominal wall muscular soft tissue masses, the largest measuring 12.5x4.7x11.2 cm, could be muscular hematomas, regarding the patient history, yet follow-up and tissue sampling are needed if clinically warranted. Diffuse anterior abdominal wall edema, more on the right side. Tiny right anterior abdominal wall subcutanoeus metallic foreign body at the umbilical region. Abdomen: Liver: Normal in size, shape, and density. No focal lesions, cysts, or masses were identified. Hepatic vasculature and biliary ducts are unremarkable. Gallbladder and Biliary System: The gallbladder is normal in size and shape with small stone inside. No wall thickening, pericholecystic fluid, or gallstones were identified. The common bile duct is normal in caliber without dilation. Pancreas: Pancreatic head, body, and tail are visualized and appear normal in size and density. No pancreatic masses or calcifications were noted. The pancreatic duct is not dilated. Spleen: Normal in size, shape, and density. No splenic lesions or masses were identified. Kidneys and Adrenal Glands: Both kidneys are normal in size, shape, and position. Cortical thickness is within normal limits. No renal calculi or hydronephrosis. Adrenal glands are unremarkable with no evidence of masses or hyperplasia. Pelvis: Urinary Bladder: Mild thickened wall urinary bladder could be cystitis. Prostate: Mild enlarged prostate. Seminal Vesicles: Normal in size and appearance. No abnormalities noted. Rectum and Sigmoid Colon: Normal wall thickness and no evidence of mass. Peritoneal and Retroperitoneal Structures: No free fluid or abnormal fluid collections were identified within the abdomen or pelvis. No lymphadenopathy was noted. Bowel: Non complicated colonic diverticulosis. The visualized bowel loops are normal in caliber and appearance. No evidence of bowel obstruction or wall thickening. Bones and Soft Tissues: Bilateral L4-L5 pars defects likely degenerative. Bilateral hip joints osteoarthritis. Lumbar spine degenerative changes. Lumbar levoscoliosis noted. IMPRESSION: 1. Large upper right anterior abdominal wall and lower right anterior chest wall muscular soft tissue swellings/masses, the largest measuring 12.5x4.7x11.2 cm, likely presenting right rectus sheath hematoma extending to lower right chest wall. Need active arterial phase study/CT angiography to rule out active bleeder. 2. Tiny right anterior abdominal wall subcutaneous metallic foreign body at the umbilical region. 3. Diffuse anterior abdominal wall edema, more on the right side could be soft tissue contusions. 4. Cholelithiasis. 5. Mild thickened wall of urinary bladder, could be cystitis. 6. Mild enlarged prostate. 7. Non-complicated colonic diverticulosis. 8. Bilateral L4-L5 pars defects are likely degenerative. Electronically signed by Mabel Corrigan 10-04-2024 07:[address] 10/04/24 05:10 EXAM: CT chest diagnostic w con CLINICAL HISTORY: Right upper chest wall pain and bruising, right abdominal wall pain w/ bruising. TECHNIQUE: Contiguous 3.[address] images of the chest were acquired with administration of intravenous contrast. Coronal and sagittal reconstructions were obtained. 94 ml Optiray 320 was administered for post-contrast images. One of the following dose reduction techniques were utilized for this exam: Automated exposure control, adjustment of the mA and/or kV according to patient size, and use of iterative reconstruction. COMPARISON: 10/01/2024 X-ray FINDINGS: Lungs: Few right upper calcific and non-calcific nodules, the largest measures 8.2 mm. The rest of the lungs are clear with no evidence of consolidation, collapse, or focal lesions. No ground-glass opacities or interstitial changes. No pleural effusion or pleural thickening. Mediastinum: No mediastinal mass or abnormal lymphadenopathy. Normal appearance of the thymus. Hilar Structures: Normal size and configuration, no enlargement. Heart and Great Vessels: The dilated ascending aorta measures 45 mm, follow-up is needed. The dilated pulmonary trunk measures 32 mm and could be pulmonary hypertension, clinical correlation is needed. Normal heart size and configuration. No pericardial effusion. Normal caliber and course of the thoracic aorta and other great vessels. No significant atherosclerosis or aneurysm. Normal enhancement of the great vessels post-contrast. Bones: Suspected right posterior glenoid fracture or detached osteophyte, clinical correlation is needed. Thoracic spine degenerative changes with osteophytes. Thoracic spine dextro-scoliosis. No fractures or lytic/sclerotic lesions. Normal bone density and alignment. No evidence of rib fractures. Chest Wall: No masses or soft tissue abnormalities. Please refer to the abdominal report for abdominal findings IMPRESSION: 1. Few right upper calcific and non-calcific nodules, the largest measuring 8.2 mm. Lung-RAD 2. 2. The dilated ascending aorta measures 45 mm, follow-up is needed. 3. The dilated pulmonary trunk measures 32 mm and could be related to pulmonary hypertension, clinical correlation is needed. 4. Thoracic spine degenerative changes with osteophytes. 5. Thoracic spine dextro-scoliosis. 6. Suspected right posterior glenoid fracture or detached osteophyte, clinical correlation is needed. Lung-RADS Category: 0 - Incomplete. Additional imaging needed. 1 - Negative. No nodules or definitely benign nodules. 2 - Benign appearance or behavior. Very low likelihood of malignancy. 3 - Probably benign. Short-term follow-up suggested. 4A - Suspicious. Consider additional diagnostic testing. 4B - Suspicious. Additional diagnostic testing and/or tissue sampling is suggested. 4X - Highly suspicious of malignancy. Urgent evaluation needed. Electronically signed by Mabel Corrigan 10-04-2024 07:02 AM PG Care Time/CCT Total # of Minutes Spent Total Time Spent with Patient: Total time spent is greater than 50% in coordination of care (as documented) at patient's floor/unit and/or counseling patient: Coding Level of Care Code 39820 IN/OBS CONSULT LVL 3,45M Diagnoses Hematoma of rectus sheath, initial encounter S30.1XXA Encounter type: initial encounter HTN (hypertension) I10 Superficial bruising of abdominal wall S30.1XXA Encounter type: initial encounter Class 2 obesity due to excess calories with body mass index (BMI) of 38.0 to 38.9 in adult E66.09; Z68.38 (1) Rectus sheath hematoma Encounter type: initial encounter Qualified Code(s): S30.1XXA - Contusion of abdominal wall, initial encounter (3) Superficial bruising of abdominal wall Encounter type: initial encounter Qualified Code(s): S30.1XXA - Contusion of abdominal wall, initial encounter
[2024-10-04 14:59] LABS: Appearance Urine Clear (Clear); Bilirubin Urine Negative (Negative); Blood Urine Negative (Negative); Color Urine Yellow; Glucose Urine UA Negative (Negative); Ketones Urine Trace (Negative); Leukocyte Esterase Urine Negative (Negative); Nitrite Urine Negative (Negative); Protein Urine Negative (Negative); Specific Gravity Urine > 1.045 (1.000-1.030); Urobilinogen Urine Negative (Negative); pH Urine 5.5 (4.5-7.5)
[2024-10-05] MEDS: BENZONATATE 100 MG CAPSULE PO PRN (05:38)
[2024-10-05] MEDS: ACETAMINOPHEN 325 MG TAB PO PRN (05:38)
[2024-10-05 05:51] LABS: Basophils # (auto) 0.04 K/uL (0.00-0.20); Basophils % (auto) 0.4 %; Eosinophils # (auto) 0.17 K/uL (0.00-0.50); Eosinophils % (auto) 1.9 %; Hematocrit (blood only) 37.6 % (42.0-52.0); Hemoglobin 12.6 g/dl (14.0-18.0); Immature Granulocytes # (auto) 0.06 K/uL (0.01-0.20); Immature Granulocytes % (auto) 0.7 %; Lymphocytes # (auto) 1.62 K/uL (1.20-3.40); Lymphocytes % (auto) 17.9 %; Mean Corpuscular Hemoglobin 30.8 pg (25.0-34.0); Mean Corpuscular Hgb Conc 33.5 g/dL (32.0-36.0); Mean Corpuscular Volume 91.9 fL (80.0-100.0); Mean Platelet Volume 9.8 fL (9.4-12.4); Monocytes # (auto) 0.96 K/uL (0.11-0.59); Monocytes % (auto) 10.6 %; Neutrophils % (auto) 68.5 %; Platelet Count 265 K/uL (130-400); RDW Coefficient of Variation 12.3 % (11.5-14.5); RDW Standard Deviation 41.6 fL (36.4-46.3); Red Blood Count 4.09 M/uL (4.70-6.10); White Blood Count 9.05 K/ul (4.8-10.8)
[2024-10-05 06:15] LABS: Albumin Level 3.8 gm/dl (3.4-5.0); BUN Creatinine Ratio 19.1 (10-20); Calcium 8.2 mg/dl (8.6-10.3); Creatinine Clr Calc Pharmacy 113.7 ml/min; Magnesium 2.1 mg/dl (1.7-2.4); Phosphorus 3.2 mg/dl (2.5-4.9); Potassium 4.1 mmol/L (3.5-5.1)
--- NOTE | 2024-10-05 11:03 | Discharge Summary ---
Discharge Summary Date of Service October 05, 2024 Principal Dx & Hospital Course #1 = Principal Diagnosis (1) Superficial bruising of abdominal wall: Most likely from muscle tear suffered while coughing. Heat applications 3 times a day. Pain medication as needed (2) Chest wall hematoma: Probably from muscle tear related to coughing episodes. Local care. Heat applications 3 times a day. Pain medication as needed. No transfusion necessary (3) Elevated troponin I level: Without acute coronary syndrome. No acute coronary syndrome Plan Discharge to home today, October 05. Take [place] as needed for pain. Avoid excessive exertion until healed. Heat application to affected areas 3 times a day Admission HPI Per Admitting Provider The patient is a 64-year-old male with a past medical history including elevated troponin level, hypertension, rosacea, class II obesity, and ED. He presents to the emergency department due to worsening symptoms of right lower chest wall pain, but more concerning to him as the development of new right lower abdominal and pelvic pain, and bruising along the right dermatomal area toward the right groin. H pain Discharge Exam General-alert and oriented x3, no fever, no chills HEENT-head atraumatic and normocephalic, pupils equal and reactive to light, extraocular muscles intact Neck-no lymphadenopathy or thyromegaly, trachea midline Chest-clear to auscultation. No rales, wheezing or rhonchi Cardiac-regular rate and rhythm, normal S1 and S2 Abdomen-normal bowel sounds, no hepatosplenomegaly Skinextensive bruising noted right upper abdomen area Extremities-no cyanosis, clubbing, or edema Neuro-cranial nerves II through XII intact, motor and sensory function within normal limits, strength symmetrical, no focal deficits Psych-normal affect, normal mood Discharge Plan Discharge Items Patient Disposition: Home - Self-Care Reason For Visit: CHEST WALL AND ABDOMINAL WALL PAIN/RECTUS SHEATH Discharge Diagnosis: Abdominal wall ecchymoses, rectus sheath hematoma, elevated troponin without acute coronary syndrome Activity: As commented below Activity Comment: Avoid overexertion or heavy lifting for 10 days Non-emergency contact: Primary Care Provider Call non-emergency contact if: your symptoms worsen Follow-up/Referrals: Lazaro Paez, [Primary Care Provider] - Diet: Regular Addtl Attending Provider Instructions: Avoid heavy lifting or overexertion for 10 days. Use a heating pad to the bruised area on the abdomen and chest 3 times a day, 20 minutes each application Pending Studies at Discharge: No Stand-Alone Forms: [email or web address], Smoking Cessation, Work/School Release Medications and DC Order Prescriptions: New hydrocodone-acetaminophen 5-325 mg tablet 1 tab PO Q6H PRN (Reason: pain) Qty: 14 0RF Continued sildenafil 50 mg tablet 50 mg PO DAILY PRN (Reason: sexual activity) Qty: 10 0RF Rx Instructions: administer 30 minutes to 4 hours before activity olmesartan 20 mg tablet 20 mg PO DAILY Qty: 90 3RF Discharge Orders: Discharge Order (Routine); Ordered 10/05/24 Ordered By: José Luis Tanner Admission Data Admit Date/Time: 10/04/24 08:05 Attending Provider: José Luis Tanner Admit Provider: Jersey Waller Primary Care Provider: Lazaro Paez Other Providers: Jersey Waller Hospital Stay Data Consultations 10/04/24 07:28 ED Decision to Admit Stat Diagnostic Imagining Performed 10/04/24 05:10 CT abd pelvis IV con only Stat CT chest diagnostic w con Stat Pending Results Patient Have Any Pending Studies at Discharge: No Discharge Instructions Given to Patient (Per Discharging Provider) Avoid heavy lifting or overexertion for 10 days. Use a heating pad to the bruised area on the abdomen and chest 3 times a day, 20 minutes each application Total Time Total Time Spent Total Time Spent (In Minutes): 45 minutes Coding Level of Care Code 70639 INP/OBS DISCH >30 MIN Diagnoses Superficial bruising of abdominal wall S30.1XXA Encounter type: initial encounter Chest wall hematoma S20.219A Encounter type: initial encounter Laterality: unspecified laterality Elevated troponin I level R79.89
[2024-10-05 11:43] VITALS: BP 149/77; PULSE 77; RESP 18; TEMP 98.4; O2SAT 97
--- NOTE | 2024-10-05 21:24 | Electrocardiogram Report ---
Test Reason : Blood Pressure : */* mmHG Vent. Rate : 52 BPM Atrial Rate : 52 BPM P-R Int : 158 ms QRS Dur : 98 ms QT Int : 472 ms P-R-T Axes : 56 9 18 degrees QTcB Int : 438 ms Sinus bradycardia Otherwise normal ECG When compared with ECG of 01-Oct-2024 06:23, No significant change was found Confirmed by Mika Oropeza ([id number]) on 10/05/2024 9:23:55 PM Referred By: Confirmed By: Mika Oropeza
== END 2024-10-05 12:11 | disposition home or self-care (01) ==
LOC: ED 04:56 → 2W 04:56 → SUATTDRO 08:05 → 2W 10:25